=== PATIENT | male | born 1945 | race Caucasian/White ===

== ENCOUNTER 2017-04-07 14:42 | Observation (INO) | payer OTHER, BC ==
[2017-04-07] MEDS ORDERED: ASPIRIN 81 MG CHEWABLE TABLETS PO ONE (14:53)
--- NOTE | 2017-04-07 15:02 | PDOC ---
History of Present Illness - General History Source: Patient Exam Limitations: No Limitations - History of Present Illness Initial Comments: 04/07/17 17:16 The patient is a 72-year-old male with a significant past medical history of IDDM, a-fib, HTN, CBD malignancy (s/p pancreatectomy, splenectomy, cholecystectomy 3 weeks ago), who presents to the emergency department with chest pain since 1:30 pm today. He states the chest pain felt like a blowtorch on the chest, 10/10 in severity, and lasted approximately 10 minutes. Upon interview he states the pain has dissipated and he now feels tired. He also reports he is concerned that his sugar levels have not been decreasing as usual despite typical usage and compliance with his insulin medication. The patient denies shortness of breath, headache and dizziness. The patient denies fever, chills, nausea, vomit, diarrhea and constipation. The patient denies dysuria, frequency, urgency and hematuria. Allergies: NKDA Past Surgical History: s/p pancreatectomy, splenectomy, cholecystectomy (3 weeks ago) Social History: No toxic habits reported PCP: Dr. Edis Becerra Blueprint Duplicator: Dr. Schwartz Cabin Supervisor: Dr. Ritchie Rosado ([place]) <Felecia Willams - Last Filed: 04/07/17 17:16> <Becky Robison - Last Filed: 04/08/17 17:03> - General Stated Complaint: CHEST PAIN Time Seen by Provider: 04/07/17 15:02 Past History <Felecia Willams - Last Filed: 04/07/17 17:16> - Past Medical History Cardiac Disorders: Yes (A.F) Diabetes: Yes Disorders: Yes (H/O KIDNEY STONE) - Surgical History Appendectomy: Yes Orthopedic Surgery: No (LEFT KNEE SX & TENDON SX) - Suicide/Smoking/Psychosocial Hx Smoking History: Never smoked Have you smoked in the past 12 months: No Hx Alcohol Use: Yes (RARE) Drug/Substance Use Hx: No Substance Use Type: Alcohol <Becky Robison - Last Filed: 04/08/17 17:03> - Past Medical History Allergies/Adverse Reactions: Allergies Allergy/AdvReac Type Severity Reaction Status Date / Time No Known Drug Allergies Allergy Verified 12/29/13 12:27 Home Medications: Ambulatory Orders Alum-Mag Hydroxide-Simeth Liq 200 mg PO Q4HWA PRN 04/07/17 Apixaban [Eliquis] 04/07/17 Ascorbic Acid [Vitamin C -] 250 mg PO DAILY 04/07/17 Cholecalciferol (Vitamin D3) 1,000 units PO 04/07/17 Docusate Sodium 100 mg PO 04/07/17 Famotidine 20 mg PO 04/07/17 Insulin Detemir [Levemir Flextouch] 100 unit SQ 04/07/17 Insulin Lispro [Humalog Kwikpen U-100] 100 unit SQ 04/07/17 Lipase/Protease/Amylase [Zenpep Dr 40,000 Units Capsule] 1 each PO TID 04/07/17 Lisinopril [Zestril] 30 mg PO 04/07/17 Metoprolol Tartrate 50 mg PO 04/07/17 [place]-3 Fatty Acids/Fish Oil [Fish Oil 1,000 mg Capsule] 04/07/17 Oxycodone HCl/Acetaminophen [Oxycodone-Acetaminophen 5-325] 1 each PO 04/07/17 Paroxetine HCl [Paxil Cr] 25 mg PO 04/07/17 Review of Systems - Review of Systems Able to Perform ROS?: Yes Comments:: 04/07/17 17:17 GENERAL/CONSTITUTIONAL: No: fever, chills, weakness, loss of appetite. HEAD, EYES, EARS, NOSE AND THROAT: No: change in vision, ear pain, discharge, sore throat, throat swelling. CARDIOVASCULAR: (+) Chest pain. No: lightheadedness, palpitations, syncope RESPIRATORY: No: cough, shortness of breath, wheezing, hemoptysis, stridor. GASTROINTESTINAL: No: nausea, vomiting, abdominal cramping, diarrhea, rectal bleeding, constipation. GENITOURINARY: No: dysuria, hematuria, frequency, urgency, flank pain. MUSCULOSKELETAL: No: back pain, neck pain, joint pain, muscle swelling or pain SKIN: No: lesions, pallor, rash or easy bruising. NEUROLOGIC: No: headache, vertigo, paresthesias, weakness ENDOCRINE: No: unexplained weight gain or loss HEMATOLOGIC/LYMPHATIC: No: anemia, easy bleeding, swelling nodes <Willams,Felecia - Last Filed: 04/07/17 17:16> *Physical Exam - Vital Signs Last Vital Signs Temp Pulse Resp BP Pulse Ox 98.1 F 81 14 112/73 98 04/07/17 15:34 04/07/17 15:34 04/07/17 15:34 04/07/17 15:34 04/07/17 15:34 - Physical Exam Comments: 04/07/17 17:17 GENERAL: The patient is in no acute distress. HEAD: Normal with no signs of trauma. EYES: PERRLA, EOMI, sclera anicteric, conjunctiva clear. ENT: Ears normal, nares patent, oropharynx clear without exudates. Moist mucous membranes. NECK: Normal range of motion, supple without lymphadenopathy, JVD, or masses. LUNGS: Breath sounds equal, clear to auscultation bilaterally. No wheezes, and no crackles. HEART:Regular rate and rhythm, normal S1 and S2 without murmur, rub or gallop. ABDOMEN: (+) Healing abdominal scar. Soft, nontender, normoactive bowel sounds. No guarding, no rebound. EXTREMITIES: Normal range of motion, no edema. No clubbing or cyanosis. No erythema, or tenderness. NEUROLOGICAL: Cranial nerves II through XII grossly intact. Normal speech. No focal neurological deficits. MUSCULOSKELETAL: Back nontender to palpation, no CVA tenderness SKIN: Warm, Dry, normal turgor, no rashes or lesions noted. <Felecia Willams - Last Filed: 04/07/17 17:16> ED Treatment Course - LABORATORY CBC & Chemistry Diagram: 04/07/17 15:44 04/07/17 15:44 - ADDITIONAL ORDERS Additional order review: Laboratory Results 04/07/17 15:44 Sodium Cancelled Potassium Cancelled Chloride Cancelled Carbon Dioxide Cancelled Anion Gap Cancelled BUN Cancelled Creatinine Cancelled Creat Clearance w eGFR Cancelled Random Glucose Cancelled Calcium Cancelled Magnesium Cancelled Total Bilirubin Cancelled AST Cancelled ALT Cancelled Alkaline Phosphatase Cancelled Creatine Kinase Cancelled Troponin I Cancelled B-Natriuretic Peptide Cancelled Total Protein Cancelled Albumin Cancelled 04/07/17 15:44 RBC 4.38 MCV 98.1 H MCHC 32.7 RDW 14.0 MPV 9.2 Neutrophils % 69.6 Lymphocytes % 17.4 Monocytes % 10.1 Eosinophils % 1.9 Basophils % 1.0 - Medications Given in the ED: ED Medications Discontinued Medications Generic Name Dose Route Start Last Admin Trade Name Freq PRN Reason Stop Dose Admin Aspirin 162 mg 04/07/17 14:53 04/07/17 15:48 Asa - PO 04/07/17 14:54 162 mg ONCE ONE Administration <Felecia Willams - Last Filed: 04/07/17 17:16> - LABORATORY CBC & Chemistry Diagram: 04/08/17 05:50 04/08/17 05:50 - RADIOLOGY Radiology Studies Ordered: Category Date Time Status CHEST X-RAY PORTABLE* [RAD] Stat Radiology 04/07/17 14:53 Ordered <Becky Robison - Last Filed: 04/08/17 17:03> Medical Decision Making - Medical Decision Making 04/08/17 16:55 72 yo M presenting to the ER due to chest pain He is s/p pancreatic duct carcinoma 3 weeks s/p Pancreatic, gallbladder resection Pt has a history of DM but notices that in the past few days his blood glucose has been very elevated He was seen by his ichthyology teacher who referred him to the ER The patient states that he has had chest pain He describes it as a blow torch across the chest No radiation to the back Pt has some pain in the arm When his pain happened, it knocked the air out of him No lower extremity edema On examination: RRR CTA Healing midline surgical scar No abd tenderness to palpation 04/08/17 17:02 Laboratory Tests 04/07/17 15:44 WBC 12.7 H Hgb 14.1 Hct 42.9 Plt Count 311 CMP hemolyzed Re sent Will do CTA to eval for PE given recent surgery Pt signed out to Dr James Pending CMP, CTA, Admission Clinical Impression: chest pain, initial presentation <Becky Robison - Last Filed: 04/08/17 17:03> *DC/Admit/Observation/Transfer - Attestations Scribe Attestion: 04/07/17 17:18 Documentation prepared by Felecia Willams, acting as medical records manager for Becky Robison MD/. <Felecia Willams - Last Filed: 04/07/17 17:16> <Becky Robison - Last Filed: 04/08/17 17:03> Diagnosis at time of Disposition: Chest pain - Discharge Dispostion Condition at time of disposition: Good
[2017-04-07] MEDS ORDERED: ASPIRIN 81 MG CHEWABLE TABLETS ONE (15:16)
[2017-04-07 15:44] VITALS: BMI 20.2
--- NOTE | 2017-04-07 16:32 | EKG ---
Test Reason : Blood Pressure : / mmHG Vent. Rate : 087 BPM Atrial Rate : 150 BPM P-R Int : 000 ms QRS Dur : 078 ms QT Int : 372 ms P-R-T Axes : 000 023 218 degrees QTc Int : 447 ms ATRIAL FIBRILLATION T wave abnormalities in inferior and anterolateral leads ABNORMAL ECG T WAVE INVERSION NOW EVIDENT IN ANTEROLATERAL LEADS Confirmed by MD Del Toro Edward ([id number]) on 04/07/2017 4:31:57 PM Referred By: Confirmed By:Omar Del Toro MD
[2017-04-07 16:45] LABS: EOS % 1.9 % (0-4.5); HEMATOCRIT 42.9 % (35.4-49); HEMOGLOBIN 14.1 GM/dL (11.7-16.9); LYMPH % 17.4 % (8-40); MCH 32.1 pg (25.7-33.7); MCHC 32.7 g/dl (32.0-35.9); MEAN CELL VOLUME 98.1 fl (80-96); MEAN PLT VOLUME 9.2 fl (7.5-11.1); MONO % 10.1 % (3.8-10.2); NEUT % 69.6 % (42.8-82.8); PLATELET COUNT 311 K/MM3 (134-434); RBC 4.38 M/mm3 (4.00-5.60); WHITE BLOOD COUNT 12.7 K/mm3 (4.0-10.0)
[2017-04-07 17:01] LABS: INR 1.23 (0.82-1.09); PROTHROMBIN TIME (PATIENT) 13.9 SEC (9.98-11.88)
[2017-04-07] MEDS ORDERED: INSULIN DETEMIR 100 UNITS/ML MDV SQ ONE ×2 (18:10→18:23)
[2017-04-07] MEDS ORDERED: SODIUM CHLORIDE 1,000 ML IV STA (18:10)
[2017-04-07 18:36] LABS: ALBUMIN 2.7 g/dl (3.4-5.0); ANION GAP 11 (8-16); BLOOD UREA NITROGEN 18 mg/dL (7-18); CALCIUM 7.7 mg/dL (8.5-10.1); CHLORIDE 94 mmol/L (98-107); CO2 26 mmol/L (21-32); POTASSIUM 4.4 mmol/L (3.5-5.1); SGOT/AST 22 U/L (15-37); SGPT/ALT 27 U/L (12-78); SODIUM 131 mmol/L (136-145)
[2017-04-07 18:39] LABS: ALK PHOS 110 U/L (45-117); BILIRUBIN,TOTAL 1.5 mg/dL (0.2-1.0); TOT PROT 5.5 g/dl (6.4-8.2)
[2017-04-07 18:40] LABS: GLUCOSE,RANDOM 384 mg/dL (74-106)
[2017-04-07] MEDS ORDERED: dilTIAZem HCL 50 MG/10 ML - 10 ML VIAL IVPUSH ONE (18:52)
[2017-04-07] MEDS ORDERED: dilTIAZem HCL 50 MG/10 ML - 10 ML VIAL ONE (19:13)
[2017-04-07] MEDS ORDERED: morphine CARPU-JECT 2 MG/1 ML DISP.SYRIN IVPUSH ONE (21:30)
[2017-04-07] MEDS ORDERED: ONDANSETRON 4 MG/2 ML VIAL IVPUSH STA (21:30)
--- NOTE | 2017-04-07 21:38 | PDOC ---
*Physical Exam - Vital Signs Last Vital Signs Temp Pulse Resp BP Pulse Ox 98.1 F 81 14 112/73 98 04/07/17 15:34 04/07/17 15:34 04/07/17 15:34 04/07/17 15:34 04/07/17 15:34 ED Treatment Course - LABORATORY CBC & Chemistry Diagram: 04/07/17 15:44 04/07/17 17:42 - ADDITIONAL ORDERS Additional order review: Laboratory Results 04/07/17 04/07/17 04/07/17 17:42 17:42 15:44 PT with INR INR Sodium 131 L Cancelled Potassium 4.4 Cancelled Chloride 94 L Cancelled Carbon Dioxide 26 Cancelled Anion Gap 11 Cancelled BUN 18 Cancelled Creatinine 1.0 Cancelled Creat Clearance w eGFR > 60 Cancelled Random Glucose 384 H* Cancelled Calcium 7.7 L Cancelled Magnesium Cancelled Total Bilirubin 1.5 H Cancelled AST 22 Cancelled ALT 27 Cancelled Alkaline Phosphatase 110 Cancelled Creatine Kinase 37 L Cancelled Troponin I 0.05 Cancelled B-Natriuretic Peptide 7986.22 H Cancelled Total Protein 5.5 L Cancelled Albumin 2.7 L Cancelled 04/07/17 15:44 PT with INR 13.90 H INR 1.23 H Sodium Potassium Chloride Carbon Dioxide Anion Gap BUN Creatinine Creat Clearance w eGFR Random Glucose Calcium Magnesium Total Bilirubin AST ALT Alkaline Phosphatase Creatine Kinase Troponin I B-Natriuretic Peptide Total Protein Albumin 04/07/17 15:44 RBC 4.38 MCV 98.1 H MCHC 32.7 RDW 14.0 MPV 9.2 Neutrophils % 69.6 Lymphocytes % 17.4 Monocytes % 10.1 Eosinophils % 1.9 Basophils % 1.0 - Medications Given in the ED: ED Medications Discontinued Medications Generic Name Dose Route Start Last Admin Trade Name Freq PRN Reason Stop Dose Admin Aspirin 162 mg 04/07/17 14:53 04/07/17 15:48 Asa - PO 04/07/17 14:54 162 mg ONCE ONE Administration Diltiazem HCl 10 mg 04/07/17 18:52 04/07/17 19:20 Cardizem Injection - IVPUSH 04/07/17 18:53 10 mg ONCE ONE Administration Insulin Detemir 10 units 04/07/17 18:10 04/07/17 18:49 Levemir Vial SQ 04/07/17 18:11 10 units ONCE ONE Administration *DC/Admit/Observation/Transfer Diagnosis at time of Disposition: Chest pain - Discharge Dispostion Condition at time of disposition: Stable Admit: Yes - Referrals Referrals: Shaan Becerra MD [Primary Care Provider] - - Patient Instructions - Post Discharge Activity
[2017-04-07] MEDS ORDERED: MORPHINE SULFATE 10 MG/1 ML *VIAL ONE (23:04)
[2017-04-07] MEDS ORDERED: ONDANSETRON 4 MG/2 ML VIAL ONE (23:05)
[2017-04-08] MEDS ORDERED: METOPROLOL TARTRATE 50 MG TABLET (FP) PO ONE (00:32)
--- NOTE | 2017-04-08 00:33 | HP ---
CHIEF COMPLAINT: abdominal pain PCP: Hernan HISTORY OF PRESENT ILLNESS: This is a 72 year old male with a significant past medical history of IDDM, afib , HTN, CBD malignancy s/p pancreatectomy, splenectomy, cholecystectomy 3 weeks ago at [facility]. He presented with an episode of pain going across upper abdomen in a horizontal pattern earlier today around 130pm that lasted 10 minutes. the pt describes the pain as being like someone just held his abdomen to a blowtorch. He had another brief episode in the ED that was much milder. No chest or abdominal pain for several hours now. He denies nausea, vomiting, diarrhea, SOB, palpitations. ER course was notable for: (1) troponin neg x 1 (2) WBC 12.7 (3) Recent Travel: pt denies PAST MEDICAL HISTORY: DM, Afib, HTN, CBD malignancy s/p pancreatectomy, splectomy, cholecystectomy 3 weeks ago, kidney stone PAST SURGICAL HISTORY: pancreatectomy, splectomy, cholecystectomy 3 weeks ago L knee tendon repair and fracture achilles tendon repair appendectomy Social History: Smoking: pt denies Alcohol: pt denies Drugs: pt denies Family History: mother age 93 dementia father decased age 75, throat CA, used chewing tobacco and smoked cigars 1 sister s/p BrCA 3 children with no medical problems Allergies No Known Drug Allergies Allergy (Verified 12/29/13 12:27) HOME MEDICATIONS: 3 Medication Instructions Recorded Alum-Mag Hydroxide-Simeth Liq 200 mg PO Q4HWA PRN 04/07/17 Apixaban [Eliquis] 04/07/17 Ascorbic Acid [Vitamin C -] 250 mg PO DAILY 04/07/17 Cholecalciferol (Vitamin D3) 1,000 units PO 04/07/17 Docusate Sodium 100 mg PO 04/07/17 Famotidine 20 mg PO 04/07/17 Insulin Detemir [Levemir Flextouch] 100 unit SQ 04/07/17 Insulin Lispro [Humalog Kwikpen 100 unit SQ 04/07/17 U-100] Lipase/Protease/Amylase [Zenpep Dr 1 each PO TID 04/07/17 40,000 Units Capsule] Lisinopril [Zestril] 30 mg PO 04/07/17 Metoprolol Tartrate 50 mg PO 04/07/17 [place]-3 Fatty Acids/Fish Oil [Fish 04/07/17 Oil 1,000 mg Capsule] Oxycodone HCl/Acetaminophen 1 each PO 04/07/17 [Oxycodone-Acetaminophen 5-325] Paroxetine HCl [Paxil Cr] 25 mg PO 04/07/17 REVIEW OF SYSTEMS CONSTITUTIONAL: Absent: fever, chills, diaphoresis, generalized weakness, malaise, loss of appetite, weight change HEENT: Absent: rhinorrhea, nasal congestion, throat pain, throat swelling, difficulty swallowing, mouth swelling, ear pain, eye pain, visual changes CARDIOVASCULAR: Absent: chest pain, syncope, palpitations, irregular heart rate, lightheadedness , peripheral edema RESPIRATORY: Absent: cough, shortness of breath, dyspnea with exertion, orthopnea, wheezing, stridor, hemoptysis GASTROINTESTINAL: present: abdominal pain Absent: abdominal distension, nausea, vomiting, diarrhea, constipation, melena, hematochezia GENITOURINARY: Absent: dysuria, frequency, urgency, hesitancy, hematuria, flank pain, genital pain MUSCULOSKELETAL: Absent: myalgia, arthralgia, joint swelling, back pain, neck pain SKIN: Absent: rash, itching, pallor HEMATOLOGIC/IMMUNOLOGIC: Absent: easy bleeding, easy bruising, lymphadenopathy, frequent infections ENDOCRINE: Absent: unexplained weight gain, unexplained weight loss, heat intolerance, cold intolerance NEUROLOGIC: Absent: headache, focal weakness or paresthesias, dizziness, unsteady gait, seizure, mental status changes, bladder or bowel incontinence PSYCHIATRIC: Absent: anxiety, depression, suicidal or homicidal ideation, hallucinations. PHYSICAL EXAMINATION Vital Signs - 24 hr 3 04/07/17 04/07/17 15:34 23:14 Temperature 98.1 F 98.7 F Pulse Rate 81 Pulse Rate [ 94 H Apical] Respiratory 14 12 Rate Blood Pressure 112/73 Blood Pressure 132/90 [Right Arm] O2 Sat by Pulse 98 94 L Oximetry (%) GENERAL: Awake, alert, and fully oriented, in no acute distress. HEAD: Normal with no signs of trauma. EYES: Pupils equal, round and reactive to light, extraocular movements intact, sclera anicteric, conjunctiva clear. No lid lag. EARS, NOSE, THROAT: Ears normal, nares patent, oropharynx clear without exudates. Moist mucous membranes. NECK: Normal range of motion, supple without lymphadenopathy, JVD, or masses. LUNGS: Breath sounds equal, clear to auscultation bilaterally. No wheezes, and no crackles. No accessory muscle use. HEART: Regular rate and rhythm, normal S1 and S2 without murmur, rub or gallop. ABDOMEN: Soft, nontender, not distended, normoactive bowel sounds, no guarding, no rebound, no masses. No hepatomegaly or splenomegaly. midline surgical scar healing well, some scabbing still present near umbilicus MUSCULOSKELETAL: Normal range of motion at all joints. No bony deformities or tenderness. No CVA tenderness. UPPER EXTREMITIES: 2+ pulses, warm, well-perfused. No cyanosis. No clubbing. No peripheral edema. LOWER EXTREMITIES: 2+ pulses, warm, well-perfused. No calf tenderness. No peripheral edema. NEUROLOGICAL: Cranial nerves II-XII intact. Normal speech. Normal gait. PSYCHIATRIC: Cooperative. Good eye contact. Appropriate mood and affect. SKIN: Warm, dry, normal turgor, no rashes or lesions noted, normal capillary refill. Laboratory Results - last 24 hr 3 04/07/17 04/07/17 04/07/17 15:44 15:44 15:44 WBC 12.7 H RBC 4.38 Hgb 14.1 Hct 42.9 MCV 98.1 H MCH 32.1 MCHC 32.7 RDW 14.0 Plt Count 311 MPV 9.2 Neutrophils % 69.6 Lymphocytes % 17.4 Monocytes % 10.1 Eosinophils % 1.9 Basophils % 1.0 PT with INR 13.90 H INR 1.23 H Sodium Cancelled Potassium Cancelled Chloride Cancelled Carbon Dioxide Cancelled Anion Gap Cancelled BUN Cancelled Creatinine Cancelled Creat Clearance w eGFR Cancelled POC Glucometer Random Glucose Cancelled Calcium Cancelled Magnesium Cancelled Total Bilirubin Cancelled AST Cancelled ALT Cancelled Alkaline Phosphatase Cancelled Creatine Kinase Cancelled Troponin I Cancelled B-Natriuretic Peptide Cancelled Total Protein Cancelled Albumin Cancelled 3 04/07/17 04/07/17 04/07/17 17:42 17:42 23:18 WBC RBC Hgb Hct MCV MCH MCHC RDW Plt Count MPV Neutrophils % Lymphocytes % Monocytes % Eosinophils % Basophils % PT with INR INR Sodium 131 L Potassium 4.4 Chloride 94 L Carbon Dioxide 26 Anion Gap 11 BUN 18 Creatinine 1.0 Creat Clearance w eGFR > 60 POC Glucometer [phone] Random Glucose 384 H* Calcium 7.7 L Magnesium Total Bilirubin 1.5 H AST 22 ALT 27 Alkaline Phosphatase 110 Creatine Kinase 37 L Troponin I 0.05 B-Natriuretic Peptide 7986.22 H Total Protein 5.5 L Albumin 2.7 L ECG Atrial fibrillation Vent rate 87, QTC 447 Inverted T waves Lead 1, 2, aVL, aVF, V2-V6; flattened lead 3 Radiology Reports Chest CTA Impression: No CT evidence of pulmonary embolism. There is no evidence of infiltrate or pleural effusion. Mild cardiomegaly. 3 x 2 mm perifissural nodule along the horizontal fissure. Reported By: Scott Lombardi MD 04/07/172054 Chest Xray IMPRESSION: No acute disease. Reported By: Demetrius Leslie MD 04/07/17 1533 ASSESSMENT/PLAN: 72yM with PMH DM, Afib, HTN, CBD malignancy s/p pancreatectomy, splectomy, cholecystectomy 3 weeks ago, kidney stone presented with upper abdominal pain. Upper abdominal pain - given pt is DM, will r/o ACS - troponin neg x 1, trend x 2 more - tele montoring - consider cardiology consult - consider us abdomen if pain recurs leukocytosis - obtain u/a - repeat in am DM - home lantus changed to formulary levemir - novolog SS AC/HS - if BGMs remain uncontrolled would obtain endo consult: pt sees Dr. Schwartz Afib/HTN - HR bumping up into 100s, pt did not take evening metoprolol dose. Will give now. - cont home eliquis, zestril and metoprolol DVT PPX - chemoprophylaxis deferred as pt expected LOS <48h FEN - Tolerating po - BMP in am - diabetic/low sodium diet Dispo: pt currently requires further observation/monitoring for management of his emergent condition.
[2017-04-08 00:34] LABS: URINE APPEARANCE CLEAR; URINE BILIRUBIN NEGATIVE (NEGATIVE); URINE BLOOD NEGATIVE (NEGATIVE); URINE COLOR LTYELLOW; URINE GLUCOSE (UA) 3+ (NEGATIVE); URINE KETONE 1+ (NEGATIVE); URINE LEUK ESTERASE NEGATIVE (NEGATIVE); URINE NITRITE NEGATIVE (NEGATIVE); URINE PROTEIN NEGATIVE (NEGATIVE)
[2017-04-08] MEDS ORDERED: INSULIN (NOVOLOG) ASPART 100 UNITS/ML 10ML VIAL SQ ONE (00:37)
[2017-04-08] MEDS ORDERED: MAG HYDROX/AL HYDROX/SIMETH 30 ML UNIT-DOSE CUP PO PRN (00:41)
[2017-04-08] MEDS ORDERED: METOPROLOL TARTRATE 50 MG TABLET (FP) ONE (00:54)
[2017-04-08] MEDS ORDERED: INSULIN SLIDING SCALE (NOVOLOG) 1 VIAL SQ SCH ×2 (07:00→22:00)
[2017-04-08] MEDS ORDERED: INSULIN DETEMIR 100 UNITS/ML MDV SQ SCH (07:00)
[2017-04-08 07:42] LABS: BASO % 0.7 % (0-2.0); EOS % 14.3 % (0-4.5); HEMATOCRIT 42.3 % (35.4-49); HEMOGLOBIN 13.7 GM/dL (11.7-16.9); LYMPH % 18.7 % (8-40); MCH 31.6 pg (25.7-33.7); MCHC 32.5 g/dl (32.0-35.9); MEAN CELL VOLUME 97.4 fl (80-96); MEAN PLT VOLUME 8.3 fl (7.5-11.1); MONO % 10.7 % (3.8-10.2); NEUT % 55.6 % (42.8-82.8); PLATELET COUNT 298 K/MM3 (134-434); RBC 4.34 M/mm3 (4.00-5.60); RDW 13.6 % (11.9-15.9); WHITE BLOOD COUNT 11.1 K/mm3 (4.0-10.0)
[2017-04-08 08:07] LABS: CHLORIDE 98 mmol/L (98-107); POTASSIUM 4.4 mmol/L (3.5-5.1); SODIUM 137 mmol/L (136-145)
[2017-04-08] MEDS: INSULIN SLIDING SCALE (NOVOLOG) 1 VIAL SQ SCH ×2 (08:09→12:43)
[2017-04-08] MEDS: LIPASE/PROTEASE/AMYLASE 36,000 UNIT CAPSULE PO SCH ×2 (08:10→12:44)
[2017-04-08] MEDS ORDERED: INSULIN DETEMIR 100 UNITS/ML MDV SQ ONE (08:14)
[2017-04-08 08:18] LABS: ANION GAP 6 (8-16); BLOOD UREA NITROGEN 13 mg/dL (7-18); CALCIUM 7.4 mg/dL (8.5-10.1); CO2 33 mmol/L (21-32); CREATININE 0.6 mg/dL (0.7-1.3); GLUCOSE,RANDOM 101 mg/dL (74-106); MAGNESIUM 2.2 mg/dL (1.8-2.4); PHOSPHOROUS 2.4 mg/dL (2.5-4.9)
[2017-04-08] MEDS ORDERED: predniSONE 10 MG TABLET (UD) ONE (09:06)
[2017-04-08] MEDS ORDERED: predniSONE 20 MG TABLET (UD) ONE (09:06)
[2017-04-08 09:26] VITALS: BP 110/65; PULSE 87; TEMP 98.4
[2017-04-08] MEDS ORDERED: APIXABAN 5 MG TABLET PO SCH (10:00)
[2017-04-08] MEDS ORDERED: LISINOPRIL 10 MG TABLET (FP) PO SCH (10:00)
[2017-04-08] MEDS ORDERED: ASCORBIC ACID 250 MG TABLET (FP) PO SCH (10:00)
[2017-04-08] MEDS ORDERED: OMEGA-3 ACID ETHYL ESTERS (FATTY-ACIDS) 1 GM CAPSULE (FP) PO SCH (10:00)
[2017-04-08] MEDS ORDERED: CHOLECALCIFEROL (VITAMIN D3) 1,000 UNIT TABLET (FP) PO SCH (10:00)
[2017-04-08] MEDS ORDERED: PARoxetine HCL 20 MG TABLET (FP) PO SCH (10:00)
[2017-04-08] MEDS ORDERED: METOPROLOL TARTRATE 50 MG TABLET (FP) PO SCH (10:00)
[2017-04-08] MEDS ORDERED: RANITIDINE HCL 150 MG TABLET (FP) PO SCH (10:00)
[2017-04-08] MEDS ORDERED: HEMOQUE TEST 1 EACH EACH ONE (11:05)
[2017-04-08 11:24] LABS: AMYLASE 5 U/L (25-115); LIPASE 19 U/L (73-393)
--- NOTE | 2017-04-08 11:29 | PN ---
Progress Note, Physician Chief Complaint: Pt in no acute distress. Pt reports the upper abd pain/burning he had resolved at the moment. Denies any chest pain, sob, n/v/d, fever/chills or weakness. - Current Medication List Current Medications: Active Medications Al Hydroxide/Mg Hydroxide (Mylanta Oral Suspension -) 30 ml PO Q6H PRN PRN Reason: GAS Apixaban (Eliquis -) 5 mg PO BID [facility] Last Admin: 04/08/17 09:14 Dose: 5 mg Ascorbic Acid (Vitamin C -) 250 mg PO DAILY [facility] Last Admin: 04/08/17 09:14 Dose: 250 mg Cholecalciferol (Vitamin D3 -) 1,000 unit PO DAILY [facility] Last Admin: 04/08/17 09:14 Dose: 1,000 unit Insulin Aspart (Novolog Vial Sliding Scale -) 1 vial SQ HS [facility] PRN Reason: Protocol Insulin Aspart (Novolog Vial Sliding Scale -) 1 vial SQ TIDAC [facility] PRN Reason: Protocol Last Admin: 04/08/17 08:09 Dose: Not Given Insulin Detemir (Levemir Vial) 16 units SQ BID@0700,2200 [facility] Last Admin: 04/08/17 08:09 Dose: 16 units Lisinopril (Prinivil) 30 mg PO DAILY [facility] Last Admin: 04/08/17 09:14 Dose: 30 mg Metoprolol Tartrate (Lopressor -) 50 mg PO BID [facility] Last Admin: 04/08/17 09:14 Dose: 50 mg [id number] Ethyl Esters (Lovaza -) 1 gm PO DAILY [facility] Last Admin: 04/08/17 09:14 Dose: 1 gm Pancrelipase (Creon Dr 36,000 Units Capsule) 1 cap PO TIDCM [facility] Last Admin: 04/08/17 08:10 Dose: 1 cap Paroxetine HCl (Paxil -) 20 mg PO DAILY [facility] Last Admin: 04/08/17 09:14 Dose: 20 mg Ranitidine HCl (Zantac -) 150 mg PO BID [facility] Last Admin: 04/08/17 09:15 Dose: 150 mg - Objective Vital Signs: Vital Signs Temperature 98.4 F 04/08/17 09:25 Pulse Rate 87 04/08/17 09:25 Respiratory Rate 18 04/08/17 09:25 Blood Pressure 110/65 04/08/17 09:25 O2 Sat by Pulse Oximetry (%) 95 04/08/17 07:55 Constitutional: Yes: Well Nourished, No Distress Cardiovascular: Yes: Pulse Irregular. No: Bruit, Gallop, Murmur Respiratory: Yes: WNL, Regular, CTA Bilaterally Gastrointestinal: Yes: Normal Bowel Sounds, Soft. No: Distention, Tenderness Genitourinary: Yes: WNL Musculoskeletal: Yes: WNL Extremities: Yes: WNL Edema: No Integumentary: Yes: Incision (cdi, appropriately healing) Wound/Incision: Yes: Clean/Dry, Well Approximated, Open to air. No: Draining, Reddened Neurological: Yes: WNL, Alert, Oriented Psychiatric: Yes: WNL, Alert, Oriented Labs: CBC, BMP 04/08/17 05:50 04/08/17 05:50 INR, PTT INR 1.23 (0.82-1.09) H 04/07/17 15:44 - ....Imaging Chest X-ray: Report Reviewed Ultrasound: Pending EKG: Report Reviewed Problem List - Problems (1) Abdominal pain of unknown cause Assessment/Plan: s/p pancreatectomy, splectomy, cholecystectomy 3 weeks ago at [facility] pt reports upper abdominal burning without any other symptoms, similar to the discomfort he had post-op denies any current abd pain/discomfort chest xray/ct without acute findings cardiac etiology ruled out case discussed with cardiologyorlin for d/c from cardiac standpoint. trops wnl ekg t wave inversions lipase/amylase/lipid panel ordered Abd US ordered can resume diab/low na diet after US Code(s): R10.9 - UNSPECIFIED ABDOMINAL PAIN (2) Hx of abdominal surgery Assessment/Plan: as above Code(s): Z98.890 - OTHER SPECIFIED POSTPROCEDURAL STATES (3) Diabetes Assessment/Plan: controlled continue insulin management diab/low na diet bgm Code(s): E11.9 - TYPE 2 DIABETES MELLITUS WITHOUT COMPLICATIONS Qualifiers: Diabetes mellitus type: type 2 Diabetes mellitus complication status: without complication Diabetes mellitus nursing home insulin use: with intermediate teacher use Qualified Code(s): E11.9 - Type 2 diabetes mellitus without complications ; Z79.4 - manager terminal (current) use of insulin; Z79.4 - [facility] (current) use of insulin; Z79.4 - manager terminal (current) use of insulin; Z79.4 - manager terminal ( current) use of insulin (4) HTN (hypertension) Assessment/Plan: controlled continue metoprolol, lisinopril Code(s): I10 - ESSENTIAL (PRIMARY) HYPERTENSION Qualifiers: Hypertension type: essential hypertension Qualified Code(s): I10 - Essential (primary) hypertension (5) A-fib Assessment/Plan: chronic, rate controlled coagulated on eliquis Code(s): I48.91 - UNSPECIFIED ATRIAL FIBRILLATION Qualifiers: Atrial fibrillation type: chronic Qualified Code(s): I48.2 - Chronic atrial fibrillation (6) Depression Assessment/Plan: stable continue paxil Code(s): F32.9 - MAJOR DEPRESSIVE DISORDER, SINGLE EPISODE, UNSPECIFIED Qualifiers: Depression Type: other depression Qualified Code(s): F32.89 - Other specified depressive episodes (7) Hyperlipidemia Assessment/Plan: chronic continue fish oil lipid profile ordered Code(s): E78.5 - HYPERLIPIDEMIA, UNSPECIFIED Assessment/Plan dispo home today based on results abd us, labs
--- NOTE | 2017-04-08 12:35 | CON.CARD ---
Cardiology Consult (text) - Consultation Consultation Note: cc: abd pain hpi: 72 m hx dm, htn, afib, CBD cancer s/p recent abd surgery, here with epigastric burning. Pt was sitting yesterday and began to feel epigastric burning that lasted for 10 mins. No sob, cp, palps, dizzy, loc, pnd, orthopnea , le edema. Resolved on own. Had similar sx after his recent abd surgery. Today feels well, no abd pain. pmh: per hpi psh: per hpi social: no tob fam: no premature cad, scd ros: per hpi; no nvd, cough, berkowitz, vision changes, gib, hematuria, muscle pains meds: Home Medications Medication Instructions Recorded Alum-Mag Hydroxide-Simeth Liq 200 mg PO Q4HWA PRN 04/07/17 Apixaban [Eliquis] 04/07/17 Ascorbic Acid [Vitamin C -] 250 mg PO DAILY 04/07/17 Cholecalciferol (Vitamin D3) 1,000 units PO 04/07/17 Docusate Sodium 100 mg PO 04/07/17 Famotidine 20 mg PO 04/07/17 Insulin Detemir [Levemir Flextouch] 100 unit SQ 04/07/17 Insulin Lispro [Humalog Kwikpen 100 unit SQ 04/07/17 U-100] Lipase/Protease/Amylase [Zenpep Dr 1 each PO TID 04/07/17 40,000 Units Capsule] Lisinopril [Zestril] 30 mg PO 04/07/17 Metoprolol Tartrate 50 mg PO 04/07/17 [place]-3 Fatty Acids/Fish Oil [Fish 04/07/17 Oil 1,000 mg Capsule] Oxycodone HCl/Acetaminophen 1 each PO 04/07/17 [Oxycodone-Acetaminophen 5-325] Paroxetine HCl [Paxil Cr] 25 mg PO 04/07/17 pe: Vital Signs Period Temp Pulse Resp BP Sys/[place] Pulse Ox Last 24 Hr 98.1 F-98.7 F 81-94 12-18 110-138/65-90 94-98 nad no jvd irreg s1s2 no mrg cta bl nl eff aaox3 abd with mild epigastric tenderness, pos bs, nd no le e/c/c no jaundice diaphoresis pos dp pt Laboratory Last Values WBC 11.1 K/mm3 (4.0-10.0) H 04/08/17 05:50 RBC 4.34 M/mm3 (4.00-5.60) 04/08/17 05:50 Hgb 13.7 GM/dL (11.7-16.9) 04/08/17 05:50 Hct 42.3 % (35.4-49) 04/08/17 05:50 MCV 97.4 fl (80-96) H 04/08/17 05:50 MCH 31.6 pg (25.7-33.7) 04/08/17 05:50 MCHC 32.5 g/dl (32.0-35.9) 04/08/17 05:50 RDW 13.6 % (11.9-15.9) 04/08/17 05:50 Plt Count 298 K/MM3 (134-434) 04/08/17 05:50 MPV 8.3 fl (7.5-11.1) 04/08/17 05:50 Neutrophils % 55.6 % (42.8-82.8) D 04/08/17 05:50 Lymphocytes % 18.7 % (8-40) 04/08/17 05:50 Monocytes % 10.7 % (3.8-10.2) H 04/08/17 05:50 Eosinophils % 14.3 % (0-4.5) H D 04/08/17 05:50 Basophils % 0.7 % (0-2.0) 04/08/17 05:50 PT with INR 13.90 SEC (9.98-11.88) H 04/07/17 15:44 INR 1.23 (0.82-1.09) H 04/07/17 15:44 Sodium 137 mmol/L (136-145) 04/08/17 05:50 Potassium 4.4 mmol/L (3.5-5.1) 04/08/17 05:50 Chloride 98 mmol/L (98-107) 04/08/17 05:50 Carbon Dioxide 33 mmol/L (21-32) H D 04/08/17 05:50 Anion Gap 6 (8-16) L 04/08/17 05:50 BUN 13 mg/dL (7-18) D 04/08/17 05:50 Creatinine 0.6 mg/dL (0.7-1.3) L D 04/08/17 05:50 Creat Clearance w eGFR > 60 (>60) 04/07/17 17:42 POC Glucometer 175.69504 UNITS (80-120) 04/08/17 11:10 Random Glucose 101 mg/dL (74-106) D 04/08/17 05:50 Calcium 7.4 mg/dL (8.5-10.1) L 04/08/17 05:50 Phosphorus 2.4 mg/dL (2.5-4.9) L 04/08/17 05:50 Magnesium 2.2 mg/dL (1.8-2.4) 04/08/17 05:50 Total Bilirubin 1.5 mg/dL (0.2-1.0) H 04/07/17 17:42 AST 22 U/L (15-37) 04/07/17 17:42 ALT 27 U/L (12-78) 04/07/17 17:42 Alkaline Phosphatase 110 U/L (45-117) 04/07/17 17:42 Creatine Kinase 36 IU/L (39-308) L 04/08/17 05:50 Troponin I 0.06 ng/ml (0.00-0.05) H 04/08/17 05:50 B-Natriuretic Peptide 7986.22 pg/ml (5-125) H 04/07/17 17:42 Total Protein 5.5 g/dl (6.4-8.2) L 04/07/17 17:42 Albumin 2.7 g/dl (3.4-5.0) L 04/07/17 17:42 Total Amylase 5 U/L (25-115) L 04/08/17 05:50 Lipase 19 U/L (73-393) L 04/08/17 05:50 Urine Color Ltyellow 04/08/17 00:10 Urine Appearance Clear 04/08/17 00:10 Urine pH 6.0 (5.0-8.0) 04/08/17 00:10 Ur Specific [place] 1.048 (1.001-1.035) H 04/08/17 00:10 Urine Protein Negative (NEGATIVE) 04/08/17 00:10 Urine Glucose (UA) 3+ (NEGATIVE) H 04/08/17 00:10 Urine Ketones 1+ (NEGATIVE) H 04/08/17 00:10 Urine Blood Negative (NEGATIVE) 04/08/17 00:10 Urine Nitrite Negative (NEGATIVE) 04/08/17 00:10 Urine Bilirubin Negative (NEGATIVE) 04/08/17 00:10 Urine Urobilinogen 2.0 mg/dL (0.2-1.0) 04/08/17 00:10 Ur Leukocyte Esterase Negative (NEGATIVE) 04/08/17 00:10 cta chest: no pe, no chf ecg: aifb, vr 87, nl qtc, no st changes, nonspec tw changes a/p: 72 m hx dm, htn, afib, CBD cancer s/p recent abd surgery, here with epigastric burning. epigastric burning: -no cp, no signs acs (ce's negx3), no signs chf. reproducible epigastric tenderness. -does not seem cardiac in etiology, seems more GI related htn: -cont home meds afib: -rate controlled -cont bbjennifer hld: -on [facility] cardiac robison stable for dc
[2017-04-08] MEDS ORDERED: INSULIN (NOVOLOG) ASPART 100 UNITS/ML 10ML VIAL ONE (12:38)
--- NOTE | 2017-04-08 14:00 | DS ---
Physical Examination Vital Signs: Vital Signs Temperature 98.4 F 04/08/17 09:25 Pulse Rate 87 04/08/17 09:25 Respiratory Rate 18 04/08/17 09:25 Blood Pressure 110/65 04/08/17 09:25 O2 Sat by Pulse Oximetry (%) 95 04/08/17 07:55 Constitutional: Yes: Well Nourished, No Distress Cardiovascular: Yes: Pulse Irregular, Gallop. No: Bruit, JVD, Murmur Respiratory: Yes: WNL, Regular, CTA Bilaterally. No: Rales, Rhonchi, Stridor, Tachypnea, Wheezes Gastrointestinal: Yes: WNL, Normal Bowel Sounds, Soft. No: Distention, Tenderness Musculoskeletal: Yes: WNL Extremities: Yes: WNL Edema: No Integumentary: Yes: Incision Wound/Incision: Yes: Clean/Dry, Open to air Neurological: Yes: Alert, Oriented Psychiatric: Yes: Alert, Oriented Labs: CBC, BMP 04/08/17 05:50 04/08/17 05:50 Discharge Summary Reason For Visit: CHEST PAIN Current Active Problems Diabetes (Chronic) HTN (hypertension) (Chronic) A-fib (Chronic) Depression (Chronic) Hyperlipidemia (Chronic) Hospital Course: is a pleasant 72 year old male with pmh of afib, htn, dm2, cbd ca s/p pancreatectomy, splenectomy, cholecystectomy 3 weeks ago. He presented to the ED with epigastric burning pain without other symptoms. Today, pt reports burning is resolved, pt able to tolerate diet. Cardiology was consulted and cardiac etiology ruled out. Abd US without acute findings. Lipase/amylase wnl. Pt advised to follow up with pcp and surgeon. Condition: Good - Instructions Diet, Activity, Other Instructions: resume prev diet. ambulate as tolerated f/u with pcp in 1 week f/u with surgeon as directed Seek medical care if worsening chest pain, persistent n/v/d, sob, unilateral weakness, fever/chills Referrals: Shaan Becerra MD [Primary Care Provider] - 1 Week Disposition: HOME - Home Medications Comprehensive Discharge Medication List: Ambulatory Orders Alum-Mag Hydroxide-Simeth Liq 200 mg PO Q4HWA PRN 04/07/17 Apixaban [Eliquis] 04/07/17 Ascorbic Acid [Vitamin C -] 250 mg PO DAILY 04/07/17 Cholecalciferol (Vitamin D3) 1,000 units PO 04/07/17 Docusate Sodium 100 mg PO 04/07/17 Famotidine 20 mg PO 04/07/17 Insulin Detemir [Levemir Flextouch] 100 unit SQ 04/07/17 Insulin Lispro [Humalog Kwikpen U-100] 100 unit SQ 04/07/17 Lipase/Protease/Amylase [Zenpep Dr 40,000 Units Capsule] 1 each PO TID 04/07/17 Lisinopril [Zestril] 30 mg PO 04/07/17 Metoprolol Tartrate 50 mg PO 04/07/17 [place]-3 Fatty Acids/Fish Oil [Fish Oil 1,000 mg Capsule] 04/07/17 Oxycodone HCl/Acetaminophen [Oxycodone-Acetaminophen 5-325] 1 each PO 04/07/17 Paroxetine HCl [Paxil Cr] 25 mg PO 04/07/17
[2017-04-08 15:51] LABS: CHOLESTEROL 128 mg/dL (50-200); HDL CHOLESTEROL 28 mg/dL (40-60); TRIGLYCERIDES 129 mg/dL (35-160)
[2017-04-09 01:09] LABS: LDL CHOLESTEROL (ONLY SJRH) 89 mg/dL (5-100)
== END 2017-04-08 14:35 | disposition home or self-care (01) ==
LOC: JER 14:42 → JERBED 21:38
PROVIDERS: ADMIT Internal Medicine; ATTEND Internal Medicine
PROC: 3E033NZ Introduction of Analgesics, Hypnotics, Sedatives into Peripheral Vein, Percutaneous Approach (ICD-10-PCS; principal; 2017-04-07)
PROC: 3E033GC Introduction of Other Therapeutic Substance into Peripheral Vein, Percutaneous Approach (ICD-10-PCS; 2017-04-07)
PROC: 3E0337Z Introduction of Electrolytic and Water Balance Substance into Peripheral Vein, Percutaneous Approach (ICD-10-PCS; 2017-04-07)
PROC: 3E013VG Introduction of Insulin into Subcutaneous Tissue, Percutaneous Approach (ICD-10-PCS; 2017-04-07)
DX: R07.9 Chest pain, unspecified (principal); R10.10 Upper abdominal pain, unspecified; D72.829 Elevated white blood cell count, unspecified; E11.9 Type 2 diabetes mellitus without complications; I10 Essential (primary) hypertension; I48.91 Unspecified atrial fibrillation; F32.9 Major depressive disorder, single episode, unspecified; E78.5 Hyperlipidemia, unspecified; C24.0 Malignant neoplasm of extrahepatic bile duct; Z79.4 Long term (current) use of insulin; Z87.442 Personal history of urinary calculi; Z98.890 Other specified postprocedural states; Z90.81 Acquired absence of spleen; Z90.49 Acquired absence of other specified parts of digestive tract; Z90.410 Acquired total absence of pancreas
CPT/HCPCS: 36415; 71045-TC-FY; 71275-TC; 76700-TC; 80048; 80053; 80061; 81003; 82150; 82550; 82962; 83690; 83721; 83735; 83880; 84100; 84484; 85025; 85610; 87086; 93005; 93010; 96361; 96372; 96374; 96375; 99285-25; G0378

== ENCOUNTER 2019-01-26 06:10 | Day surgery (SDC) | payer OTHER, BC ==
--- NOTE | 2019-01-19 09:34 | HP ---
DATE OF SURGERY 01/26/2019 DATE OF DICTATION: 11/16/2018 REASON FOR ADMISSION: Bilateral hernia. BRIEF HISTORY: This is a 73-year-old gentleman who is known to have bilateral inguinal hernias for many, many years. He was fine up until this summer when he was walking around in [place] and he developed discomfort in the left groin region from his left inguinal hernia. He now wished to have his hernia repaired. He has had no bouts of nausea or vomiting, no change in bowel habits. PAST MEDICAL HISTORY: Significant for atrial fibrillation, diabetes, pancreatic cancer, anxiety. PAST SURGICAL HISTORY: Patient has had a pancreatectomy done in 2018 followed by incisional hernia that was repaired in May of 2018. ALLERGIES: None. MEDICATION: Lipitor, diltiazem, Paxil, Eliquis, glyburide, various vitamins. SOCIAL HISTORY: Does not smoke or drink. No history of drug use. PHYSICAL EXAMINATION: Abdomen: Soft, nontender, nondistended. He was examined in the erect and supine position and placed through multiple Valsalva maneuvers. Patient has a midline scar from xiphoid just below the umbilicus. He has 2 large inguinal hernias, the left is slightly larger than that of the right. Both hernias, the smaller one is the size of my fist. Scrotum and testicles are within normal limits. The hernia on the left is mostly reducible except for a very small portion. IMPRESSION/PLAN: Incarcerated left inguinal hernia, large right inguinal hernia : This is a 73-year-old gentleman who has become symptomatic from both inguinal hernias. At this point I would recommend their repair. Given his previous surgeries, the risk of converting from the laparoscopic procedure to an open procedure is greater; however, he and I discussed this, and therefore we will plan for an attempt at a laparoscopic left inguinal hernia repair as well as a repair on the right. If the hernia cannot be done laparoscopically the right inguinal hernia will not be repaired, and the left will be repaired in the open fashion. The indications, alternatives, and complications of a laparoscopic inguinal hernia and an open hernia have been discussed, questions have been answered, will plan on obtaining written consent the day of surgery. Paul DALEY [id number] cc: Shaan Becerra M.D. [facility]
[2019-01-25 17:10] VITALS: BMI 23.7
[2019-01-26] MEDS ORDERED: ceFAZolin SODIUM 1 GM VIAL ONE ×2 (06:25→07:34)
[2019-01-26] MEDS ORDERED: TAMSULOSIN HCL 0.4 MG CAP ONE (06:25)
[2019-01-26] MEDS ORDERED: TAMSULOSIN HCL 0.4 MG CAP PO ONE (06:30)
[2019-01-26] MEDS ORDERED: PROPOFOL 20 ML ONE ×2 (07:34→09:18)
[2019-01-26] MEDS ORDERED: LIDOCAINE HCL/PF 2% SDV 5ML VIAL ONE (07:34)
[2019-01-26] MEDS ORDERED: ONDANSETRON 4 MG/2 ML VIAL ONE (07:34)
[2019-01-26] MEDS ORDERED: DEXAMETHASONE SOD PHOSPHATE 4 MG/1 ML VIAL ONE (07:34)
[2019-01-26] MEDS ORDERED: KETOROLAC TROMETHAMINE 30 MG/1 ML VIAL ONE (07:34)
[2019-01-26] MEDS ORDERED: SODIUM CHLORIDE 0.9% P/F 10 ML VIAL IJ ONE (07:34)
[2019-01-26] MEDS ORDERED: ROPIVACAINE HCL 0.5% 30ML VIAL ONE (07:59)
[2019-01-26] MEDS ORDERED: MIDAZOLAM HCL 2 MG/2 ML SINGLE DOSE VIAL ONE ×2 (08:00)
[2019-01-26] MEDS ORDERED: DESFLURANE GAS 240 ML BOTTLE IH ONE (08:28)
[2019-01-26] MEDS ORDERED: ceFAZolin SODIUM 1 GM VIAL IVPB ONE (08:29)
[2019-01-26] MEDS ORDERED: ROCURONIUM BROMIDE 50 MG/5 ML SYRINGE ONE (08:38)
[2019-01-26] MEDS ORDERED: GLYCOPYRROLATE 0.2 MG/1 ML VIAL ONE (09:07)
[2019-01-26] MEDS ORDERED: NEOSTIGMINE METHYLSULFATE 0.5 MG/1 ML - 10 ML MDV ONE (09:07)
[2019-01-26] MEDS ORDERED: oxyCODONE HCL 5 MG TABLET PO PRN ×2 (10:34)
[2019-01-26] MEDS ORDERED: ONDANSETRON 4 MG/2 ML VIAL IVPUSH PRN (10:34)
[2019-01-26] MEDS ORDERED: LACTATED RINGERS SOLUTION 1,000 ML IV SCH (10:45)
--- NOTE | 2019-01-26 12:22 | OP ---
DATE OF OPERATION: 01/26/2019 PREOPERATIVE DIAGNOSES: Bilateral inguinal hernias (incarcerated left), atrial fibrillation, diabetes, pancreatic cancer. POSTOPERATIVE DIAGNOSES: Bilateral inguinal hernias (incarcerated indirect left, indirect right), atrial fibrillation, diabetes, pancreatic cancer. PROCEDURE: Laparoscopic repair of incarcerated left inguinal hernia with mesh, laparoscopic repair of right inguinal hernia with mesh. SURGEON: Heri Barnard MD CODING AUDITOR: Raffi Manning MD ANESTHESIA: Edu Alan MD (general). ESTIMATED BLOOD LOSS: Minimal. SPECIMEN: None. INDICATION FOR PROCEDURE: This is a 73-year-old gentleman with known bilateral inguinal hernias for many, many years. The one on the left is rather large and approximately the size of my fist. It is chronically incarcerated. He now has discomfort and wished to have these repaired. DESCRIPTION OF PROCEDURE: Patient identified and appropriately positioned on the operating room table. After placement of general anesthesia the abdomen prepped and draped in the usual sterile fashion with ChloraPrep. An infraumbilical incision was made, deepened through subcutaneous tissue. The fascia on the left was identified, divided sharply. The rectus muscle split. Under direct vision dissector balloon followed by a structural balloon placed. Also under direct vision a suprapubic 11-mm port placed. The following structures on the left side identified: Pubic tubercle, John ligament, inferior epigastric vessels, spermatic cord and lateral abdominal wall. During this dissection he had no direct component. He had a large indirect inguinal hernia sac reduced back into the preperitoneal space with blunt and sharp dissection. A 5 x 6 piece of Versatex mesh was keyholed, placed through the superior port site. The mesh wrapped around the cord structures laterally to reconstruct the internal ring. Laterally mesh anchored to the anterior abdominal wall and lateral abdominal wall. Medially mesh anchored to the anterior abdominal wall, pubic tubercle and John ligament. Upon completion of the left side the same structures on the right side were identified. On the right he had no direct component as well. He had an indirect inguinal hernia sac of moderate to large size as well. This reduced back into the preperitoneal space with sharp dissection. Another 5 x 6 piece of Versatex mesh was keyholed, placed through the superior port site. The mesh wrapped around the cord structures laterally to reconstruct the internal ring. Laterally mesh anchored to the anterior abdominal wall and lateral abdominal wall. Medially mesh well overlapped in the midline, anchored to the anterior abdominal wall, pubic tubercle and John ligament. The preperitoneal space desufflated under direct vision. The operative field noted to be hemostatic, port sites hemostatic. The port sites reapproximated with interrupted 0 Vicryl suture. All skin closed with 4-0 subcuticular Biosyn. All anterior abdominal wall and lateral abdominal wall anchors placed under direct counterpalpation. The anchoring system was AbsorbaTack and the mesh used was Versatex 15 x 15 times 2. At the conclusion of the case sponge, needle and instrument counts were correct. ATTESTATION: Brief operative note handwritten on the preprinted form. [facility] queried prior to giving any narcotics. Paul DALEY [id number] cc: MD Ritchie Craven MD
[2019-01-26 19:47] VITALS: TEMP 98.2
[2019-01-26 19:50] VITALS: BP 120/70; PULSE 88
== END 2019-01-26 14:50 | disposition home or self-care (01) ==
LOC: JASU-SURG 06:10
PROVIDERS: ATTEND Surgery
PROC: 0YUA4JZ Supplement Bilateral Inguinal Region with Synthetic Substitute, Percutaneous Endoscopic Approach (ICD-10-PCS; principal; 2019-01-26 08:00)
DX: K40.00 Bilateral inguinal hernia, with obstruction, without gangrene, not specified as recurrent (principal); I48.91 Unspecified atrial fibrillation; E11.9 Type 2 diabetes mellitus without complications; C25.9 Malignant neoplasm of pancreas, unspecified; Z76.89 Persons encountering health services in other specified circumstances
CPT/HCPCS: 82962; 94760

== ENCOUNTER 2019-09-12 09:41 | Inpatient (IN) | payer OTHER, BC ==
[2019-09-12] MEDS ORDERED: morphine CARPU-JECT 4 MG/1 ML DISP.SYRIN IVPUSH ONE ×3 (09:53→13:11)
--- NOTE | 2019-09-12 09:56 | PDOC ---
History of Present Illness - General Chief Complaint: Injury Stated Complaint: FALL/LOWER EXTREMITY INJ Time Seen by Provider: 09/12/19 09:49 History Source: Patient Exam Limitations: No Limitations - History of Present Illness Initial Comments: 09/12/19 09:54 74y M with PMH of Pancreatic Ca in remission, Afib (apixaban), DM, HTN, presenting to the ER via EMS for fracture/dislocation. Pt says he was getting out of the shower when the L knee "buckled" and his knee popped. He denies hitting his head or LOC. He endorses pain in the L knee. Pt was recently discharged last week for choledocalithiasis for which he was to follow up today. Denies headache, neck pain, abdominal pain, back pain, chest pain, sob, n/v/d, numbness, weakness, changes in vision. PMD: Rosch Onc: At [facility] PMH: see hpi PSH: whipple's resection Meds: Berkley Gee Allergies: nkda Past History - Medical History Allergies/Adverse Reactions: Allergies Allergy/AdvReac Type Severity Reaction Status Date / Time No Known Drug Allergies Allergy Verified 09/12/19 09:45 Home Medications: Ambulatory Orders Lisinopril [Zestril] 0 mg PO DAILY 04/07/17 Apixaban [Eliquis] 2.5 mg PO BID 01/25/19 Cholecalciferol (Vitamin D3) [Vitamin D3] 25 mcg PO DAILY 01/25/19 Cyanocobalamin [Vitamin B12 -] 1,000 mcg PO DAILY 01/25/19 Diltiazem HCl [Diltiazem ER] 0 mg PO DAILY 01/25/19 Glyburide 5 mg PO ACDIN 01/25/19 Glyburide 10 mg PO DAILY 01/25/19 Paroxetine HCl [Paxil] 20 mg PO DAILY 01/25/19 Insulin Aspart [Novolog] 0 unit SQ ASDIR 09/12/19 Insulin Glargine,Hum.rec.anlog [Lantus] 20 unit SQ DAILY 09/12/19 Anemia: No Asthma: No Cancer: Yes (pancreas (in remission)) Cardiac Disorders: Yes (A fib) CVA: No COPD: No CHF: No Dementia: No Diabetes: Yes GI Disorders: No Disorders: Yes (H/O KIDNEY STONE) HTN: No Hypercholesterolemia: No Liver Disease: No Seizures: No Thyroid Disease: No - Surgical History Appendectomy: Yes Cholecystectomy: Yes (3 weks ago) Orthopedic Surgery: No (LEFT KNEE SX & TENDON SX) - Immunization History Immunization Up to Date: Yes - Psycho-Social/Smoking History Smoking History: Never smoked Have you smoked in the past 12 months: No - Substance Abuse Hx (Audit-C & DAST Scrn) How often the patient has a drink containing alcohol: Never Score: In Men: 4 or > Positive; In Women: 3 or > Positive: 0 Screen Result (Pos requires Nsg. Audit-10AR): Negative In the last yr the pt used illegal drug/Rx for NonMed reason: No Score: Yes response is considered Positive: 0 Screen Result (Positive result requires Nsg. DAST-10): Negative Review of Systems - Review of Systems Constitutional: No: Symptoms Reported HEENTM: No: Symptoms Reported Respiratory: No: Symptoms reported Cardiac (ROS): No: Symptoms Reported ABD/GI: No: Symptoms Reported : No: Symptoms Reported Musculoskeletal: Yes: See HPI Integumentary: No: Symptoms Reported Neurological: No: Symptoms reported *Physical Exam - Vital Signs Last Vital Signs Temp Pulse Resp BP Pulse Ox 97.8 F 110 H 20 170/87 99 09/12/19 09:43 09/12/19 09:43 09/12/19 09:43 09/12/19 09:43 09/12/19 09:43 - Physical Exam General Appearance: Yes: Moderate Distress, Thin HEENT: positive: EOMI, MIRI. negative: Scleral Icterus (R), Scleral Icterus (L) Neck: positive: Trachea midline, Supple. negative: Lymphadenopathy (R), L ymphadenopathy (L) Respiratory/Chest: positive: Lungs Clear, Normal Breath Sounds. negative: Crackles, Rales, Rhonchi, Stridor, Wheezing Cardiovascular: positive: S1, S2, Irregularly Irregular. negative: Edema, JVD, Murmur Vascular Pulses: Dorsalis-Pedis (R): 2+, Doralis-Pedis (L): 2+ Comments:: 09/12/19 18:27 PT 2+ Popliteal 2+ Gastrointestinal/Abdominal: positive: Normal Bowel Sounds, Soft, Other. negative: Distended, Guarding, Rebound Musculoskeletal: positive: Other (RLE normal. LLE: hip and knee flexed, slight external rotation at knee. Knee appears deformed. tib/fib appers grossly normal. normal ankles. No hip tenderness.). negative: CVA Tenderness Extremity: positive: Normal Capillary Refill, Other (flexed L knee with deformity at distal femur/knee. pt unable to move knee. ). negative: Swelling, Calf Tenderness Integumentary: positive: Normal Color, Dry, Warm, Other (abrasion to dorsal L foot and distal LLE.) Neurologic: positive: database administration associate II-XII NML intact, Fully Oriented, Alert, Normal Mood/Affect, Normal Response, Motor Strength 06/27 ED Treatment Course - LABORATORY CBC & Chemistry Diagram: 09/12/19 10:10 09/12/19 10:10 Medical Decision Making - Medical Decision Making 09/12/19 09:56 74y M with PMH of pancreatic Ca s/p Whipple's procedure in remission x1y, afib (eliquis), DM presenting to the ER for knee pain with fracture/dislocation. vitals wnl PE shows LLE in flexion, obvious deformity to L knee. Pt unable to move extremity however moves toes, sensation intact, pulses intact. suspect fracture +/- dislocation +/- vascular involvement. DPs 2+ bilaterally. given 50mcg Fentanyl by EMS. -will give pain medication. Will need to image extremity but knee will need to be extended for proper imaging. Will control pain and give Ketamine. Oncologist made aware. 09/12/19 11:05 Ketamine given (total 100mg) pt tolerated reduction/extension well. Xray at bedside shows closed distal comminuted femur fx with displacement. Ortho consulted (Dr. Montesinos). Knee immobilizer placed. will obtain CT. given proximity, will obtain CTA. preop labs drawn. ekg: afib at 95bpm. no malissa or depressions. no signs of acute ischemia. 09/12/19 18:29 xrays show old proximal tibial fx, no other fx noted. CTA results with distal femur fx comminuted with dislocation. popliteal aa shows filling defect, intimal involvement v. thrombus. Vascular made aware: do not suspect arterial involvement at this time. ortho given results of CT. plan to operate on . will admit for fx, pain control and operative fix of fracture likely pathological fx. Discharge - Discharge Information Problems reviewed: Yes Clinical Impression/Diagnosis: Closed displaced supracondylar fracture of distal end of left femur with intracondylar extension Qualifiers: Encounter type: initial encounter Qualified Code(s): S72.462A - Displaced supracondylar fracture with intracondylar extension of lower end of left femur, initial encounter for closed fracture Condition: Stable - Admission Yes - Follow up/Referral - Patient Discharge Instructions - Post Discharge Activity
[2019-09-12] MEDS ORDERED: KETAMINE HCL 200 MG/20 ML VIAL IVPUSH ONE ×2 (10:07→11:09)
[2019-09-12] MEDS ORDERED: KETAMINE HCL 200 MG/20 ML VIAL ONE (10:12)
[2019-09-12 10:22] LABS: BASO % 1.5 % (0-2.0); EOS % 2.8 % (0-4.5); HEMATOCRIT 43.4 % (35.4-49); HEMOGLOBIN 14.2 GM/dL (11.7-16.9); LYMPH % 35.5 % (8-40); MCH 31.4 pg (25.7-33.7); MCHC 32.7 g/dl (32.0-35.9); MEAN CELL VOLUME 95.9 fl (80-96); MEAN PLT VOLUME 8.4 fl (7.5-11.1); MONO % 7.2 % (3.8-10.2); PLATELET COUNT 584 K/MM3 (134-434); RBC 4.53 M/mm3 (4.00-5.60); RDW 14.5 % (11.9-15.9); WHITE BLOOD COUNT 8.6 K/mm3 (4.0-10.0)
[2019-09-12] MEDS ORDERED: BACITRACIN 0.9 GM PACKET ONE (10:25)
[2019-09-12 10:29] LABS: INR 1.18 (0.83-1.09); PROTHROMBIN TIME (PATIENT) 13.9 SEC (9.7-13.0)
[2019-09-12 10:31] LABS: ACTIVATED PTT 32.5 SECONDS (25.2-36.5)
--- NOTE | 2019-09-12 10:53 | PDOC ---
Documentation entered by Felecia Campbell SCRIBE, acting as scribe for Vikki Hughes MD. Vikki Hughes MD: This documentation has been prepared by the rema, Felecia Gordon SCRIBE, under my direction and personally reviewed by me in its entirety. I confirm that the documentation accurately reflects all work, treatment, procedures, and medical decision making performed by me. Attending Attestation - Resident Resident Name: Germaine Asif - ED Attending Attestation I have performed the following: I have examined & evaluated the patient, The case was reviewed & discussed with the resident, I agree w/resident's findings & plan, Exceptions are as noted - HPI HPI: 09/12/19 09:54 The patient is a 74-year-old male with a significant past medical history of IDDM, a-fib, HTN, CBD malignancy (s/p pancreatectomy, splenectomy, cholecystectomy, now on remission), who presents to the emergency department BIBA for evaluation of left knee injury. Patient states that he was stepping out of the shower at which time he felt his left knee "buckle" and subsequently fell to the floor. Patient is endorsing left knee pain. The patient denies LOC, head trauma. The patient denies chest pain, shortness of breath, headache and dizziness. Denies fever, chills, nausea, vomiting, diarrhea and constipation. Denies dysuria, frequency, urgency and hematuria. Patient is on eliquis for his afib but reports he did not take his AM dose today. Allergies: NKDA Past Surgical History: s/p pancreatectomy, splenectomy, cholecystectomy (2 years ago) Social History: No toxic habits reported PCP: Dr. Edis Becerra Social Worker School: Dr. Schwartz Veterinary Meat Inspector: Dr. Ritchie Rosado ([place]) - Physicial Exam PE: 09/12/19 10:46 General: uncomfortable appearing HEENT: NCAT, EOMI Chest: CTAB, good air entry CVS: + s1 s2, irregularly irregular Extremities: no pelvic instability, + superficial laceration to L dorsum of foot ~3cm and anterior lower leg ~8 cm without active bleeding, able to wiggle toes b/l, LLE held in flexion at knee with gross deformity just proximal to L knee, +DP pulses, sensation intact to light touch Neuro: Aox3, responds appropriately to questions, speech fluent, face symmetric, able to move all extremities freely with exception of LLE - Critical Care Time Total Critical Care Time: 30 Critical Care Statement: The care of this patient involved high complexity decision making to prevent further life threatening deterioration of the patient's condition and/or to evaluate & treat vital organ system(s) failure or risk of failure. - Medical Decision Making 09/12/19 10:49 74 yo M with obvious LLE deformity, given mechanism and h/o CA concerning for pathologic fracture. Also possible age related osteopenia. Also possible dislocation although patient with good DP pulses so lower suspicion for vascular compromise. Plan: -labs -cxr -pelvis xray -xray L femur -xr L knee -CT head -CT c-spine -CT L knee -ortho consult -pain control as needed -admit This clinical encounter is taking place during a federal and state health care emergency attributable to the novel [place] Virus pandemic. The [place] of the Department of Health and Human Services has declared, pursuant to the Public Health Service Act 319F-3 (42 U.S.C. 247d-6d), that a covered persons activities related to medical countermeasures against COVID-19 will be immune from liability under Federal and State law. Discharge - Discharge Information Problems reviewed: Yes Clinical Impression/Diagnosis: Closed displaced supracondylar fracture of distal end of left femur with intraco ndylar extension Qualifiers: Encounter type: initial encounter Qualified Code(s): S72.462A - Displaced supracondylar fracture with intracondylar extension of lower end of left femur, initial encounter for closed fracture Condition: Stable - Follow up/Referral - Patient Discharge Instructions - Post Discharge Activity
[2019-09-12 10:54] LABS: ALBUMIN 2.8 g/dl (3.4-5.0); BILIRUBIN,TOTAL 0.7 mg/dL (0.2-1); BLOOD UREA NITROGEN 9.1 mg/dL (7-18); CALCIUM 8.8 mg/dL (8.5-10.1); CREATININE 0.8 mg/dL (0.55-1.3); POTASSIUM 4.4 mmol/L (3.5-5.1); TOT PROT 7.5 g/dl (6.4-8.2)
[2019-09-12] MEDS ORDERED: morphine SULFATE 4 MG/ML VIAL ONE ×2 (11:32→13:16)
--- NOTE | 2019-09-12 11:52 | EKG ---
Test Reason : Blood Pressure : / mmHG Vent. Rate : 095 BPM Atrial Rate : 091 BPM P-R Int : 000 ms QRS Dur : 080 ms QT Int : 364 ms P-R-T Axes : 000 027 048 degrees QTc Int : 457 ms ATRIAL FIBRILLATION ANTEROSEPTAL INFARCT , AGE UNDETERMINED ABNORMAL ECG WHEN COMPARED WITH ECG OF 07-APR-2017 15:02, ANTEROSEPTAL INFARCT IS NOW PRESENT T WAVE INVERSION NO LONGER EVIDENT IN INFERIOR LEADS T WAVE INVERSION NO LONGER EVIDENT IN ANTEROLATERAL LEADS Confirmed by Audi Bhatt ([id number]) on 09/12/2019 11:52:08 AM Referred By: Confirmed By:Audi Bhatt
[2019-09-12] MEDS ORDERED: LIDOCAINE HCL 1%, 10 MG/ML (20ML VIAL) ONE (13:20)
[2019-09-12] MEDS ORDERED: BUPIVACAINE HCL/PF 0.5% (5 MG/ML) 30 ML VIAL IJ ONE (13:21)
[2019-09-12] MEDS ORDERED: HYDROmorphone HCL CARPU-JECT 2 MG/1 ML DISP.SYRIN IVPUSH ONE ×2 (14:59→17:17)
[2019-09-12] MEDS ORDERED: HYDROmorphone HCl 2 MG/ML VIAL ONE ×2 (15:00→17:19)
[2019-09-12] MEDS ORDERED: dilTIAZem HCL 50 MG/10 ML - 10 ML VIAL IVPUSH ONE (17:01)
--- NOTE | 2019-09-12 17:10 | HP ---
CHIEF COMPLAINT: Left knee pain PCP: Toya HISTORY OF PRESENT ILLNESS: 74M w/ pmh of pancreatic Ca(dx in ~2017, s/p Whipple and adjuvant chemotherapy), biliary drain with recent "stone removal via ERCP" 2 weeks prior, HTN, IDDM, Afib(Eliquis) BIBA to [facility] after sustaining a Ground-Level Fall, after stepping out of the shower, subsequent severe Left knee pain. Fell with his Left leg going "90degrees". Does not know amount of time down on the ground, but immediately called for help through [employer]. No blood loss on the scene. Did not take his Eliquis this morning. Denies coolness, loss of sensation to the Left leg. Prior to fall, denies LOC, dizziness, palpitations, SOB. Has fallen 3x in the past, claiming that the latest fall 1month prior, resulted in him hitting his head against the shower with a resultant scalp laceration in which he did not seek medical evaluation. Lives alone in [facility], with GF staying over intermittently. Finished chemotherapy 6mo prior, has been seeing oncologist(Alec in [place]) q3mo. Had a RUQ drainage bag that was dc'd 1 week prior with eventual plan to remove biliary drain on the day of admission. ER course was notable for: (1) Tmax 100F, HR 110, BP 158/102 (2) CXR: neg pathology, central line noted (3) XR pelvis: neg fx/subluxation/blastic/lytic lesion. Vascular calcification noted (4) XR Left knee: comminuted distal femoral fracture, not involving the articular surface (5) CT Head: neg acute pathology, mod diffuse cerebral atrophy (6) CT cspine: mild dengenerative disesase (7) CT aorta w/ b/l runoff: possible intimal dissection at site of acute angulation of the popliteal artery above the knee (8) ED consulted Jaguar (9) ED consulted Zack, who did not agree with the intimal dissection (10) sp LLE splinting (11) administered morphine 4mg, 4, 6, ketamine 100, dilaudid 0.5mg Recent Travel: denies PAST MEDICAL HISTORY: as above PAST SURGICAL HISTORY: ?whipple Social History: Smoking: once or twice at 13y/o Alcohol: denies Drugs: denies Allergies No Known Drug Allergies Allergy (Verified 09/12/19 09:45) HOME MEDICATIONS: Home Medications Medication Instructions Recorded Lisinopril [Zestril] 0 mg PO DAILY 04/07/17 Apixaban [Eliquis] 2.5 mg PO BID 01/25/19 Cholecalciferol (Vitamin D3) 25 mcg PO DAILY 01/25/19 [Vitamin D3] Cyanocobalamin [Vitamin B12 -] 1,000 mcg PO DAILY 01/25/19 Diltiazem HCl [Diltiazem ER] 0 mg PO DAILY 01/25/19 Glyburide 5 mg PO ACDIN 01/25/19 Glyburide 10 mg PO DAILY 01/25/19 Paroxetine HCl [Paxil] 20 mg PO DAILY 01/25/19 Insulin Aspart [Novolog] 0 unit SQ ASDIR 09/12/19 Insulin Glargine,Hum.rec.anlog 20 unit SQ DAILY 09/12/19 [Lantus] REVIEW OF SYSTEMS CONSTITUTIONAL: Absent: fever, chills, diaphoresis, generalized weakness, malaise, loss of appetite, weight change HEENT: Absent: rhinorrhea, nasal congestion, throat pain, throat swelling, difficulty swallowing, mouth swelling, ear pain, eye pain, visual changes CARDIOVASCULAR: Absent: chest pain, syncope, palpitations, irregular heart rate, lightheadedness, peripheral edema RESPIRATORY: Absent: cough, shortness of breath, dyspnea with exertion, orthopnea, wheezing, stridor, hemoptysis GASTROINTESTINAL: Absent: abdominal pain, abdominal distension, nausea, vomiting, diarrhea, constipation, melena, hematochezia GENITOURINARY: Absent: dysuria, frequency, urgency, hesitancy, hematuria, flank pain, genital pain MUSCULOSKELETAL: LLE knee selling and leg pain Absent: myalgia, arthralgia, back pain, neck pain SKIN: Absent: rash, itching, pallor HEMATOLOGIC/IMMUNOLOGIC: Absent: easy bleeding, easy bruising, lymphadenopathy, frequent infections ENDOCRINE: Absent: unexplained weight gain, unexplained weight loss, heat intolerance, cold intolerance NEUROLOGIC: Absent: headache, focal weakness or paresthesias, dizziness, unsteady gait, seizure, mental status changes, bladder or bowel incontinence PSYCHIATRIC: Absent: anxiety, depression, suicidal or homicidal ideation, hallucinations. PHYSICAL EXAMINATION Vital Signs - 24 hr 09/12/19 09/12/19 09/12/19 09:43 10:03 10:38 Temperature 97.8 F 100.0 F H Pulse Rate 110 H Pulse Rate [ 103 H 98 H Left Radial] Respiratory 20 16 18 Rate Blood Pressure 170/87 Blood Pressure 167/97 188/97 H [Left Arm] O2 Sat by Pulse 99 98 97 Oximetry (%) 09/12/19 09/12/19 09/12/19 11:24 11:50 13:41 Temperature 98.8 F Pulse Rate Pulse Rate [ 93 H 101 H Left Radial] Respiratory 17 18 Rate Blood Pressure Blood Pressure 143/89 137/96 [Left Arm] O2 Sat by Pulse 98 97 95 Oximetry (%) 09/12/19 14:00 Temperature 98.6 F Pulse Rate Pulse Rate [ Left Radial] Respiratory Rate Blood Pressure Blood Pressure [Left Arm] O2 Sat by Pulse Oximetry (%) GENERAL: Awake, alert, and fully oriented, in mild acute distress. HEAD: NC, AT, no scalp hematomas noted. Mild temporal wasting EYES: sclera anicteric, conjunctiva clear EARS, NOSE, THROAT: Moist mucous membranes. NECK: Normal range of motion, supple without lymphadenopathy, JVD, or masses. LUNGS: Breath sounds equal, clear to auscultation bilaterally. No wheezes, and no crackles. No accessory muscle use. HEART: rate up to 120s at overhead monitors, irregular rhythm, normal S1 and S2 without murmur, rub or gallop. ABDOMEN: well-healed midline surgical scar. Soft, nontender, not distended, no guarding, no rebound. RUQ with IR biliary(?intrahepatic) drain. MUSCULOSKELETAL: No CVA tenderness. Left knee swelling w/ effusion, LLE in splint UPPER EXTREMITIES: 2+ pulses, warm, well-perfused. No cyanosis. No clubbing. No peripheral edema. LOWER EXTREMITIES: 2+ DP b/l, 1+ PT b/l, warm, well-perfused. No RLE calf tenderness. Sensation intact b/l. No coolness to LLE NEUROLOGICAL: Normal speech. SKIN: Warm, dry, normal turgor, no rashes or lesions noted, normal capillary refill. Laboratory Results - last 24 hr 09/12/19 09/12/19 09/12/19 10:10 10:10 10:10 WBC 8.6 RBC 4.53 Hgb 14.2 Hct 43.4 MCV 95.9 MCH 31.4 MCHC 32.7 RDW 14.5 Plt Count 584 H D MPV 8.4 Absolute Neuts (auto) 4.6 Neutrophils % 53.0 Lymphocytes % 35.5 D Monocytes % 7.2 Eosinophils % 2.8 D Basophils % 1.5 Nucleated RBC % 0 PT with INR 13.90 H INR 1.18 H PTT (Actin FS) 32.5 Sodium 135 L Potassium 4.4 Chloride 97 L Carbon Dioxide 28 Anion Gap 11 BUN 9.1 Creatinine 0.8 Est GFR (CKD-EPI)AfAm 102.71 Est GFR (CKD-EPI)NonAf 88.62 POC Glucometer Random Glucose 292 H Calcium 8.8 Total Bilirubin 0.7 AST 80 H ALT 45 Alkaline Phosphatase 258 H Total Protein 7.5 Albumin 2.8 L Blood Type Antibody Screen 09/12/19 09/12/19 09/12/19 10:10 15:42 15:51 WBC RBC Hgb Hct MCV MCH MCHC RDW Plt Count MPV Absolute Neuts (auto) Neutrophils % Lymphocytes % Monocytes % Eosinophils % Basophils % Nucleated RBC % PT with INR INR PTT (Actin FS) Sodium Potassium Chloride Carbon Dioxide Anion Gap BUN Creatinine Est GFR (CKD-EPI)AfAm Est GFR (CKD-EPI)NonAf POC Glucometer 203 190 Random Glucose Calcium Total Bilirubin AST ALT Alkaline Phosphatase Total Protein Albumin Blood Type B POSITIVE Antibody Screen Negative ASSESSMENT/PLAN: 74M w/ pmh of pancreatic Ca(dx in ~2017, s/p Whipple and adjuvant chemotherapy), HTN, IDDM, Afib(Eliquis) BIBA to [facility] after sustaining a Ground-Level Fall, after stepping out of the shower, subsequent severe Left knee pain. Fell with his Left leg going "90degrees". Imaging notable for LLE distal femur comminuted fracture. Pt placed in splint in the ED. CTA done d/t Ortho request for CT; and ED wanted to evaluate for trauma of politeal artery d/t location of fx. #LLE distal comminuted femur fracture > XR Left knee: comminuted distal femoral fracture, not involving the articular surface - HOLD AC and home Eliquis - NWB to LLE - PT - pain mgmt: morphine 2mg, 4mg PRN - Ortho consult(Montesinos): --recs pending, possible OR on #RUQ biliary drain - dressing changes daily - do NOT aspirate from catheter #politeal intimal "dissection" --questionable - Vascular consult(Zack): --does not agree with radiologic interpretation --formal recs to follow #AFib > [id number] - HOLDING Eliquis for surgery this week - cw home Cardizem 360mg QD #HTN - cw home cardizem, lisinopril #IDDM - cw home lantus 20U daily - ISS FEN - no mIVF - diabetic diet DVT PPX: - SCDs Family Medical History Family Hx Cancer: Father (throat caner) Family Hx Coronary Artery Disease: Father ([place]) Visit type - Medication Review Med list reviewed for High Risk Meds patients 65 and older: Yes - Emergency Visit Emergency Visit: Yes ED Registration Date: 09/12/19 Care time: The patient presented to the Emergency Department on the above date and was hospitalized for further evaluation of their emergent condition. - New Patient This patient is new to me today: Yes Date on this admission: 09/12/19 - Critical Care Critical Care patient: No ATTENDING PHYSICIAN STATEMENT I saw and evaluated the patient. I reviewed the resident's note and discussed the case with the resident. I agree with the resident's findings and plan as documented. SUBJECTIVE: OBJECTIVE: ASSESSMENT AND PLAN:
[2019-09-12] MEDS ORDERED: ONDANSETRON 4 MG/2 ML VIAL IVPB ONE (17:13)
[2019-09-12] MEDS ORDERED: dilTIAZem HCL 125 MG/25 ML - 25 ML VIAL ONE (17:13)
[2019-09-12] MEDS ORDERED: morphine CARPU-JECT 2 MG/1 ML DISP.SYRIN IVPUSH PRN (17:18)
--- NOTE | 2019-09-12 17:49 | CON.ORTH ---
Consult Consult Specialty:: orthopedic surgery - History of Present Illness Chief Complaint: L knee pain History of Present Illness: 74-year-old gentleman presents to the hospital with complaints of left knee pain and inability to weight-bear after falling just outside the shower. He felt like leg gave way and then he fell. His history is significant for pancreatic cancer. He notes pain only in this area. He has a prior history of ORIF of the tibial plateau 10 years ago. He has no numbness or tingling. It should also be noted he is on Eliquis for atrial fibrillation.4-year-old gentleman presents to the hospital with complaints of left knee pain and inability to weight-bear after falling just outside the shower. He felt like leg gave way and then he fell. His history is significant for pancreatic cancer. He notes pain only in this area. He has a prior history of ORIF of the tibial plateau 10 years ago. He has no numbness or tingling. It should also be noted he is on Eliquis for atrial fibrillation. - History Source History Provided By: Patient, Medical Record - Past Medical History Cardio/Vascular: Yes: AFIB, HTN Hepatobiliary: Yes: Choledocholithiasis Endocrine: Yes: Diabetes Mellitus - Alcohol/Substance Use Hx Alcohol Use: Yes (occas light beer) - Smoking History Smoking history: Never smoked Have you smoked in the past 12 months: No Home Medications - Allergies Allergies/Adverse Reactions: Allergies Allergy/AdvReac Type Severity Reaction Status Date / Time No Known Drug Allergies Allergy Verified 09/12/19 09:45 - Home Medications Home Medications: Ambulatory Orders Lisinopril [Zestril] 0 mg PO DAILY 04/07/17 Apixaban [Eliquis] 2.5 mg PO BID 01/25/19 Cholecalciferol (Vitamin D3) [Vitamin D3] 25 mcg PO DAILY 01/25/19 Cyanocobalamin [Vitamin B12 -] 1,000 mcg PO DAILY 01/25/19 Diltiazem HCl [Diltiazem ER] 0 mg PO DAILY 01/25/19 Glyburide 5 mg PO ACDIN 01/25/19 Glyburide 10 mg PO DAILY 01/25/19 Paroxetine HCl [Paxil] 20 mg PO DAILY 01/25/19 Insulin Aspart [Novolog] 0 unit SQ ASDIR 09/12/19 Insulin Glargine,Hum.rec.anlog [Lantus] 20 unit SQ DAILY 09/12/19 Review of Systems - Review of Systems Constitutional: denies: Chills, Diaphoresis, Fever Cardiovascular: denies: Chest Pain, Edema, Palpitations Respiratory: denies: Cough, Exercise Intolerance, Hemoptysis Genitourinary: denies: Burning, Discharge, Dysuria Physical Exam for Ortho Vital Signs: Vital Signs Temperature 98.6 F 09/12/19 14:00 Pulse Rate 123 H 09/12/19 17:17 Respiratory Rate 18 09/12/19 17:17 Blood Pressure 125/71 09/12/19 17:17 O2 Sat by Pulse Oximetry (%) 96 09/12/19 17:17 Constitutional: Yes: Well Nourished, No Distress, Calm Cardiovascular: Yes: Pulse Irregular Respiratory: Yes: Regular Gastrointestinal: Yes: Soft. No: Distention Labs: CBC, BMP 09/12/19 10:10 09/12/19 10:10 INR, PTT INR 1.18 (0.83-1.09) H 09/12/19 10:10 - Lower Extremity Knee: Yes: Left, Assymetrical, Deformity, Pain, Swelling, Tenderness (externally rotated, swollen but compartments are soft). No: Erythema, Laceration Foot: Yes: Left, Abrasion, Other (ehl fhl ta g s intact) - Affected Extremity Peripheral Pulses: 2+ Left Doralis Pedis Neuro/Vascular Assessment: Yes: Warm, Kingsley, Normal Sensation Imaging - Results X-ray: Report Reviewed, Image Reviewed Cat Scan: Report Reviewed, Image Reviewed (highly comminuted distal femur fracture with intra-articular extension) Problem List - Problems (1) Closed displaced supracondylar fracture of distal end of left femur with intracondylar extension Assessment/Plan: I reviewed today's findings with Ilia. We discussed that there is a fracture of the lower end of the femur. We discussed the option of nonoperative care. This involves typically splint or brace immobilization. Femoral fractures do not reduce themselves, meaning they will not grow back in a straight line if they heal in the wrong spot. This fracture is displaced and rotated, it will not heal with a good functional result. We also discussed the option of operative care which is highly recommended. Typically involves utilizing a plate and screws to restore and maintain the proper alignment to the bone. An incision is made over the lower thigh. The bone is then put back in place and held in place with a plate and screws. The surgery involves risks including bleeding, infection, neurovascular injury, need for further surgery (including revision if the fracture does not heal or plate removal), postoperative pain and stiffness, nonunion, malunion, hardware failure or cutout. We discussed medical risks such as heart attack, stroke, DVT, PE and . I discussed the use of perioperative antibiotic and DVT prophylaxis. Specifically for this fracture, there is extreme comminution present. While the CT scan does not show any particular pathologic lesion, it is possible that this would be missed due to the amount of damage caused to the bone. If there is any suspicion for a lesion, a biopsy will be taken at the time of this procedure. If the biopsy is positive, there is high likelihood that the lesion would impair the healing, necessitating another surgery or even amputation depending on the extent of the lesion. Even without a lesion, the amount of comminution may require bone grafting if healing is insufficient. Allograft or synthetic bone graft may be used at the time of the procedure to aide in bony healing. I reviewed the postoperative protocol including use of a brace, followed by physical therapy to regain range of motion and strength. I addressed all of Ilia's questions and concerns. The plan at this time is to proceed with surgery. We will wait 72h for the Marlen to metabolize and plan for the case on . He should be on LMWH for DVT prophylaxis. Problems reviewed: Yes Code(s): S72.462A - DISPL SUPRCNDL FX W INTRCNDL EXTN LOWER END OF L FEMUR, INIT Qualifiers: Encounter type: initial encounter Qualified Code(s): S72.462A - Displaced supracondylar fracture with intracondylar extension of lower end of left femur, initial encounter for closed fracture
--- NOTE | 2019-09-12 18:37 | PN ---
Teaching Attending Note Name of Resident: Jeffery Mcdonough ATTENDING PHYSICIAN STATEMENT I saw and evaluated the patient. I reviewed the resident's note and discussed the case with the resident. I agree with the resident's findings and plan as documented. SUBJECTIVE:This is a 72 year old male with a significant past medical history of IDDM, afib, HTN, CBD malignancy s/p pancreatectomy, splenectomy, cholecystectomy, presenting to the ER via EMS for fracture/dislocation. Pt says he was getting out of the shower when the L knee "buckled" and he hit the floor and developed pain in the left knee, He denies hitting his head or LOC. He endorses pain in the L knee. Pt was recently discharged last week for choledocalithiasis for which he was to follow up today. had ERCp and was relieved, Denies headache, neck pain, abdominal pain, back pain, chest pain, sob, n/v/d, numbness, weakness, changes in vision. it was trip and fall, no LOC, OBJECTIVE: O/E is comfortable, nad, alert awake , oriented into 3, vss neck supple no jvd cvs s1/s2/0 chest ctab abd benign, Drain in pace, on the R side after the ERCP, ext no c/c/e . L knee in stabilzer, swollen knee, neuro non focal, ASSESSMENT AND PLAN: 74y M with PMHThis is a 72 year old male with a significant past medical history of IDDM, afib, HTN, CBD malignancy s/p pancreatectomy, splenectomy, cholecystectomy, (1) Closed displaced supracondylar fracture of distal end of left femur with intracondylar extension fracture distal femur on xray, had reduction and extention in ER, pt tolerated reduction/extension well. Xray at bedside shows closed distal comminuted femur fx with displacement. Ortho consult(Dr. Montesinos) and appreciated . Knee immobilizer placed. ekg: afib at 95bpm. no malissa or depressions. no signs of acute ischemia. xrays show old proximal tibial fx, no other fx noted. CTA results with distal femur fx comminuted with dislocation. popliteal aa shows filling defect, intimal involvement v. thrombus, vascular surgery consult with dr paulino, do not suspect arterial involvement at this time. formal consult pending, pain control and operative fix of fracture likely pathological fx. hold eliquis for 72 h, and possible ORIF on , pain management, 2)DM, RIss, 3) HTN continue home meds, 4) dvt, prophylaxis, scd, eliquis on hold. 5. drain on the R side in the bile duct, was supposed to be removed as out pt, will change the dressing
[2019-09-12] MEDS: LIPASE/PROTEASE/AMYLASE 36,000 UNIT CAPSULE PO SCH (19:38)
[2019-09-12] MEDS: INSULIN SLIDING SCALE (NOVOLOG) 1 VIAL SQ SCH (21:41)
[2019-09-12] MEDS: DOCUSATE SODIUM 100 MG CAPSULE (FP) PO SCH (21:41)
[2019-09-12] MEDS: APIXABAN 2.5 MG TABLET PO SCH ×2 (21:41→22:13)
[2019-09-12] MEDS: MORPHINE SULFATE 2 MG/ML VIAL IVPUSH PRN (21:42)
[2019-09-12 23:36] VITALS: BMI 21.4
[2019-09-13] MEDS: MORPHINE SULFATE 2 MG/ML VIAL IVPUSH PRN ×6 (01:59→23:04)
[2019-09-13] MEDS: INSULIN (LEVEMIR) 100 UNITS/ML UNITS SQ SCH (06:36)
[2019-09-13] MEDS: INSULIN SLIDING SCALE (NOVOLOG) 1 VIAL SQ SCH ×4 (06:37→21:16)
[2019-09-13 08:24] LABS: BASO % 1.3 % (0-2.0); EOS % 2.2 % (0-4.5); HEMATOCRIT 40.7 % (35.4-49); HEMOGLOBIN 13.1 GM/dL (11.7-16.9); LYMPH % 23.9 % (8-40); MCH 31.2 pg (25.7-33.7); MCHC 32.3 g/dl (32.0-35.9); MEAN CELL VOLUME 96.6 fl (80-96); MEAN PLT VOLUME 8.1 fl (7.5-11.1); MONO % 9.5 % (3.8-10.2); NEUT % 63.1 % (42.8-82.8); PLATELET COUNT 468 K/MM3 (134-434); RBC 4.22 M/mm3 (4.00-5.60); RDW 14.7 % (11.9-15.9); WHITE BLOOD COUNT 11.7 K/mm3 (4.0-10.0)
[2019-09-13] MEDS ORDERED: ACETAMINOPHEN 500 MG TABLET (FP) PO PRN (08:46)
[2019-09-13] MEDS ORDERED: DOCUSATE SODIUM 100 MG CAPSULE (FP) PO ONE (08:47)
[2019-09-13 08:57] LABS: ALBUMIN 2.7 g/dl (3.4-5.0); BLOOD UREA NITROGEN 21.7 mg/dL (7-18); CALCIUM 8.8 mg/dL (8.5-10.1); CREATININE 1.1 mg/dL (0.55-1.3); MAGNESIUM 2.4 mg/dL (1.8-2.4); PHOSPHOROUS 5.4 mg/dL (2.5-4.9); POTASSIUM 4.9 mmol/L (3.5-5.1); TOT PROT 6.9 g/dl (6.4-8.2)
[2019-09-13] MEDS ORDERED: PATIENT'S OWN MEDICATION (NON-FORMULARY) (Insulin Glargine,Hum.Rec.Anlog [Lantus] 20 UNIT) SQ SCH (10:00)
[2019-09-13] MEDS: LIPASE/PROTEASE/AMYLASE 36,000 UNIT CAPSULE PO SCH ×3 (10:13→17:16)
[2019-09-13] MEDS: DOCUSATE SODIUM 100 MG CAPSULE (FP) PO SCH ×2 (10:13→21:16)
[2019-09-13] MEDS: ENOXAPARIN NA (PORCINE) 40 MG/0.4 ML DISP.SYRIN SQ SCH (10:13)
[2019-09-13] MEDS: LISINOPRIL 20 MG TABLET (FP) PO SCH (10:14)
--- NOTE | 2019-09-13 10:25 | PN ---
Progress Note (short form) - Note Progress Note: VASCULAR SURGERY 74 yo male admitted with left knee pain and inability to weight-bear s/p slip/fall exiting the shower. Denies dizzy, weak, palpitations prior too or post fall. Denies LOC. h/o significant for tibial plateau fracture (same leg) 10 years ago resulting in ORIF. Afib on Eliquis (currently being held for impending surgery) While in the ED he had the following imaging studies: 1. XR pelvis: neg fx/subluxation/blastic/lytic lesion. Vascular calcification noted 2. XR Left knee: comminuted distal femoral fracture, not involving the articular surface 3. CT aorta w/ b/l runoff: possible intimal dissection at site of acute angu lation of the popliteal artery above the knee (findings discussed with Dr. Dixon who reviewed images and no dissection seen) Patient resting comfortably. Only has pain if he attempts to move LLE. Wearing knee immobilizer as instructed. Denies n/v/f/c, CP, palpitations, SOB or FERNANDO Last Vital Signs Temp Pulse Resp BP Pulse Ox 97.8 F 106 H 18 116/83 96 09/13/19 05:00 09/13/19 05:00 09/12/19 23:42 09/13/19 05:00 09/12/19 23:42 CBC, BMP 09/13/19 07:55 09/13/19 07:55 INR, PTT INR 1.18 (0.83-1.09) H 09/12/19 10:10 Serology Test 09/12/19 10:53 COVID-19 (ARIEL) Pending GEN: nad LLE: knee immobilizer. Swelling from mid thigh to mid todd. Moving toes without difficulty of pain. Unable to asses popliteal fossa for pulse (tried with pencil doppler and unsuccessful, a lot of swelling and unable to position properly for exam). Palpable DP and PT. Cap refill < 3 seconds. Sensory intact. A/P: 74 yo male admitted with comminuted distal femoral fracture (left) not involving articular surface. - Surgery scheduled with Dr. Adiel Montesinos ([facility]) 09/15/19 - Cont to hold Eliquis - LMWH for DVT ppx - Per Dr. Dixon no further vascular surgery input - Reconsult prn On behlaf of Dr. Dixon, Thank you for the opportunity to participate in your patient's care. Problem List - Problems (1) Closed displaced supracondylar fracture of distal end of left femur with intracondylar extension Code(s): S72.462A - DISPL SUPRCNDL FX W INTRCNDL EXTN LOWER END OF L FEMUR, INIT Qualifiers: Encounter type: initial encounter Qualified Code(s): S72.462A - Displaced supracondylar fracture with intracondylar extension of lower end of left femur, initial encounter for closed fracture (2) A-fib Code(s): I48.91 - UNSPECIFIED ATRIAL FIBRILLATION Qualifiers: Atrial fibrillation type: chronic (3) Diabetes Code(s): E11.9 - TYPE 2 DIABETES MELLITUS WITHOUT COMPLICATIONS Qualifiers: Diabetes mellitus type: type 2 Diabetes mellitus assisted insulin use: with terminal system operator use Diabetes mellitus complication status: without complication Qualified Code(s): E11.9 - Type 2 diabetes mellitus without complications; Z79.4 - intermediate frame tender (current) use of insulin (4) HTN (hypertension) Code(s): I10 - ESSENTIAL (PRIMARY) HYPERTENSION Qualifiers: Hypertension type: essential hypertension Qualified Code(s): I10 - Essential (primary) hypertension
[2019-09-13] MEDS ORDERED: PIPERACILLIN/TAZOB 3.375 GM 3.375 GM in DEXTROSE 5%-WATER - 50 ML IVPB SCH (13:00)
[2019-09-13] MEDS ORDERED: PIPERACILLIN/TAZOB 4.5 GM 4.5 GM in DEXTROSE 5%-WATER 100 ML IVPB SCH (13:15)
[2019-09-13] MEDS ORDERED: PIPERACILLIN/TAZOBACTAM 4.5 GM VIAL IVPB ONE (14:19)
[2019-09-13] MEDS ORDERED: DEXTROSE 5%-WATER 100 ML IVPB ONE (14:19)
--- NOTE | 2019-09-13 14:56 | PN ---
Progress Note (short form) - Note Progress Note: 74 yo M with PMHx of pancreatic cancer (in remission x 1 year) who sustained a left distal femur fracture yesterday. Patient is lying comfortably in bed with knee immobilizer and pillows under left leg. Notes a "burning" sensation to left ankle. Girlfriend at bedside. Last Vital Signs Temp Pulse Resp BP Pulse Ox 98.6 F 91 H 18 99/58 L 96 09/13/19 14:38 09/13/19 14:38 09/13/19 14:38 09/13/19 14:38 09/13/19 09:00 PE: LLE Left knee externally rotated and swollen Compartments soft No calf tenderness Abrasion to left todd and foot without signs of infection No swelling to left ankle Mild tenderness about lateral ankle Nontender medially Motor and sensation intact 2+ DP pulses Abnormal Lab Results 09/13/19 09/13/19 07:55 07:55 WBC 11.7 H MCV 96.6 H Plt Count 468 H BUN 21.7 H Random Glucose 161 H Phosphorus 5.4 H Alkaline Phosphatase 222 H Albumin 2.7 L A: left distal femur fracture P: Plan for OR this We discussed ORIF vs distal femur replacement Distal femur replacement may be a good option for this patient due to his low activity rate and severity of comminution Patient will consider both options and we will continue to discuss his options Remain strict NWB Continue wearing knee immobilizer Hold Eliquis LMWH for DVT prophylaxis
--- NOTE | 2019-09-13 16:03 | ECHO ---
Version: 1 Name: JARON MARIA Exam: Adult Echocardiogram Study Date: 09/13/2019, 3:02 PM Age: 74 Years MMode/2D Measurements & Calculations IVSd: 1.13 cm LVIDs: 2.9 cm LVIDd: 4.2 cm LVPWd: 1.40 cm LAV (MOD-bp): 77.9 ml LVOT diam: 2.24 cm Ao root diam: 3.3 cm LA dimension: 3.6 cm Doppler Measurements & Calculations MV E max wil: 76.2 cm/sec Med E/e': 16.7 MV A max wil: 34.9 cm/sec Med Peak E' Wil: 4.6 cm/sec MV E/A: 2.18 Lat E/e': 5.5 Lat Peak E' Wil: 13.8 cm/sec Ao max P.2 mmHg Ao V2 max: 124.6 cm/sec Procedure A two-dimensional transthoracic echocardiogram with color flow and Doppler was performed. The study was technically difficult with many images being suboptimal in quality. The patient was in atrial fibril lation with controlled ventricular rate during the exam. Left Ventricle The left ventricle is normal in size. Left ventricular systolic function is normal. Ejection Fractio n = 55%. Right Ventricle The right ventricle is grossly normal size. The right ventricular systolic function is grossly michell l. Atria The left atrium is mildly dilated. Right atrial size is normal. Mitral Valve There is moderate mitral annular calcification. There is trace mitral regurgitation. Tricuspid Valve The tricuspid valve is normal. There is mild tricuspid regurgitation. There was insufficient TR dete cted to calculate RV systolic pressure. Aortic Valve Fibrocalcific aortic valve without significant stenosis. No aortic regurgitation is present. Pulmonic Valve The pulmonic valve is not well visualized. Great Vessels Mildly dilated ascending aorta. Pericardium/Pleura There is no pericardial effusion. Summary Statements The study was technically difficult with many images being suboptimal in quality. Left ventricular systolic function is normal. The right ventricular systolic function is grossly normal. The left atrium is mildly dilated. There is moderate mitral annular calcification. There is trace mitral regurgitation. There is mild tricuspid regurgitation. Fibrocalcific aortic valve without significant stenosis. Mildly dilated ascending aorta. There is no pericardial effusion. MD Derrick Du 09/13/2019, 4:02 PM Ordering Physician: Zo Sánchez Referring Physician: SHONA Performed By: Rola York
--- NOTE | 2019-09-13 16:14 | PN ---
Teaching Attending Note Name of Resident: Zo Sánchez ATTENDING PHYSICIAN STATEMENT I saw and evaluated the patient. I reviewed the resident's note and discussed the case with the resident. I agree with the resident's findings and plan as documented. SUBJECTIVE: Has pain in L lower thigh and knee, has no N/V. has no CP or SOB. he reports Whipple for his pancreatic cancer, finished chemo about a year ago. Recently had choledocolithiasis with ERCP x 2 and a ASRAH drain placement. drain bag was removed about 5 days ago, and the drain was supposed to be removed. He was placed on Abx at dc from hospital. he still has 1 week left. OBJECTIVE: NAD, awake, alert, cooperative and pleasant Lungs: CTAB CV: irreg irreg , diastolic murmur on LLSB. Abd: soft, NT, ND, RUQ SARAH drain with no bag attached. dressing removed and purulent discharge was found on the dressing and around the insertion site. no tenderness around it Ext : LLE in a stabilizer, with edema around L knee, with no erythema, nl warmth . a longitudinal wound on anterior todd with a laceration on L dorsal foot. DP 2+ and has normal feeling in L foot and can principal mechanical engineer toes and ankle RLE with no erythema on edema on thigh and leg . ASSESSMENT AND PLAN: 74 y/o man with h/o Pancreatic cancer, s/p Whipple's procedure, and chemo, also choledocolithiasis, s/p ERCP and RUQ SARAH drain placement, A fib, HTN, DM, who presented with a fall and was found to have acute L lower femoral fracture 1- L distal femoral fracture. - cont paincontrol , add oxycodone - cont immobilizer - obtain echo prior to surgery due to murmur on exam . - cont to hold Elipaubrie , patietn understands risk fro stroke while AC on hold 2- RUQ SARAH drain, with possible infection. details per patient as above. will try to obtain more info from treating MD in [facility]. probably had cholangitis and impacted stone removal was complicated . a drain was placed and patient was dc on Abx . - will give zosyn - will consult ID - case was /dw Dr. Cuellar, limited Recs at this point due to lack of info. will obtain CT of Abd without IV contrast. 3- H/o a FIB : - Cont CArdizem - hold Eliquis 4- Dm : - cont levemir and SSI - will confirm meds 5- DVT px: add Lovenox while Eliquis on hold
--- NOTE | 2019-09-13 16:35 | PN ---
Progress Note (short form) - Note Progress Note: ID CONSULT DICTATED R/O INFECTED BILE DUCT DRAINAGE CATHETER FEVER/ LEUKOCYTOSIS R/O SEPSIS SECONDARY TO INFECTED CATHETER S/P FEMUR FRACTURE S/P PANCREATECTOMY/CHOLECYSTECTOMY/SPLENECTOMY OBTAIN CULTURES CONTINUE EMPIRIC ZOSYN, STAT DOSE VANCOMYCIN
[2019-09-13] MEDS ORDERED: VANCOMYCIN 1 GRAM (PRE-DOCKED) 1,000 MG/250 ML BAG IVPB ONE (17:00)
[2019-09-13] MEDS: PIPERACILLIN/TAZOB 4.5 GM 4.5 GM in DEXTROSE 5%-WATER 100 ML IVPB SCH (17:17)
--- NOTE | 2019-09-13 17:54 | CONSULT ---
- Consultation REQUESTING PROVIDER: Leandra LUNA CONSULT REQUEST: We have been asked to surgically evaluate this patient for evaluation of percutaneous biliary drainage catheter. PCP:Merecdez Mobley HISTORY OF PRESENT ILLNESS: TREVOR who is a 74 y/o male who has a TOTAL PANCREATECTOMY pancreatic cancer and not a Whipple procedure and a cholecystectomy; he received chemotx. and is in remission a/t him; he developed ? biliary sepsis ? and had a ?PTC catheter placed and related procedures; it appears the catheter is on internal drainage now; he was admitted for a LE fx. and will undergo ORIF 09/15/19. PMHx: HLD/IDDM post surgery/pancreatic insufficiency post surgery PSHx: as above Home Medications Medication Instructions Recorded Apixaban [Eliquis] 2.5 mg PO BID 01/25/19 Cholecalciferol (Vitamin D3) 25 mcg PO DAILY 01/25/19 [Vitamin D3] Cyanocobalamin [Vitamin B12 -] 1,000 mcg PO DAILY 01/25/19 Diltiazem HCl [Diltiazem ER] 360 mg PO DAILY 01/25/19 Glyburide 5 mg PO ACDIN 01/25/19 Glyburide 10 mg PO ACBK 01/25/19 Insulin Aspart [Novolog] 40 unit SQ DAILY 09/12/19 Insulin Glargine,Hum.rec.anlog 20 unit SQ DAILY 09/12/19 [Lantus] Lisinopril [Zestril] 40 mg PO DAILY 09/12/19 Paroxetine HCl [Paxil Cr] 25 mg PO DAILY 09/12/19 Atorvastatin Calcium [Lipitor] 20 mg PO DAILY 09/13/19 Insulin Detemir [Levemir Flextouch] 16 units BID 09/13/19 Lipase/Protease/Amylase [Zenpep Dr 4 cap TID 09/13/19 10,000 Unit Capsule] Allergies Allergy/AdvReac Type Severity Reaction Status Date / Time No Known Drug Allergies Allergy Verified 09/12/19 09:45 REVIEW OF SYSTEMS: CONSTITUTIONAL: Absent: fever, chills, diaphoresis, generalized weakness, malaise, loss of appetite, weight change CARDIOVASCULAR: Absent: chest pain, syncope, palpitations, irregular heart rate, lightheadedness, peripheral edema RESPIRATORY: Absent: cough, shortness of breath, dyspnea with exertion, wheezing, stridor, hemoptysis GASTROINTESTINAL: Absent: abdominal pain, abdominal distension, nausea, vomiting, diarrhea, constipation, melena, hematochezia GENITOURINARY: Absent: dysuria, frequency, urgency, hesitancy, hematuria, flank pain, genital pain MUSCULOSKELETAL: Absent: myalgia, arthralgia, joint swelling, back pain, neck pain SKIN: Absent: rash, itching, pallor HEMATOLOGIC/IMMUNOLOGIC: Absent: easy bleeding, easy bruising, lymphadenopathy NEUROLOGIC: Absent: headache, focal weakness, paresthesias, dizziness, unsteady gait, seizure, mental status changes, bladder or bowel incontinence PSYCHIATRIC: Absent: anxiety, depression, suicidal or homicidal ideation, hallucinations. PHYSICAL EXAM: GENERAL: Awake, alert, and fully oriented, in no acute distress. HEAD: Normal with no signs of trauma. EYES: sclera anicteric, conjunctiva clear. NECK: Normal ROM, supple without lymphadenopathy, JVD, or masses. ABDOMEN: Soft, nontender, not distended, normoactive bowel sounds, no guarding, no rebound, no masses. No organomegaly. Healed midline surgical scar; PTC catheter in RUQ; mo surrounding erythema or ttp; some bilious drainage. MUSCULOSKELETAL: Normal ROM at all joints e/f LLE. No CVA tenderness. UPPER EXTREMITIES: 2+ pulses, warm, well-perfused. No cyanosis. Cap refill <2 seconds. No peripheral edema. LOWER EXTREMITIES: 2+ pulses, warm, well-perfused. No calf tenderness. No peripheral edema. NEUROLOGICAL: Normal speech, gait not observed. PSYCH: Cooperative. Good eye contact. Appropriate mood and affect. SKIN: Warm, dry, normal turgor, no rashes or lesions noted. Vital Signs Temperature 98.6 F 09/13/19 14:38 Pulse Rate 68 09/13/19 15:59 Respiratory Rate 18 09/13/19 15:59 Blood Pressure 106/61 09/13/19 15:59 O2 Sat by Pulse Oximetry (%) 96 09/13/19 09:00 Lab Results WBC 11.7 K/mm3 (4.0-10.0) H 09/13/19 07:55 RBC 4.22 M/mm3 (4.00-5.60) 09/13/19 07:55 Hgb 13.1 GM/dL (11.7-16.9) 09/13/19 07:55 Hct 40.7 % (35.4-49) 09/13/19 07:55 MCV 96.6 fl (80-96) H 09/13/19 07:55 MCHC 32.3 g/dl (32.0-35.9) 09/13/19 07:55 RDW 14.7 % (11.9-15.9) 09/13/19 07:55 Plt Count 468 K/MM3 (134-434) H 09/13/19 07:55 INR 1.18 (0.83-1.09) H 09/12/19 10:10 Sodium 138 mmol/L (136-145) 09/13/19 07:55 Potassium 4.9 mmol/L (3.5-5.1) 09/13/19 07:55 Chloride 98 mmol/L (98-107) 09/13/19 07:55 Carbon Dioxide 32 mmol/L (21-32) 09/13/19 07:55 Anion Gap 8 MMOL/L (8-16) 09/13/19 07:55 BUN 21.7 mg/dL (7-18) H 09/13/19 07:55 Creatinine 1.1 mg/dL (0.55-1.3) 09/13/19 07:55 Random Glucose 161 mg/dL (74-106) H 09/13/19 07:55 Calcium 8.8 mg/dL (8.5-10.1) 09/13/19 07:55 Blood Type B POSITIVE 09/12/19 10:10 Antibody Screen Negative 09/12/19 10:10 No pertinent imaging to review IMP: no evidence of biiary sepsis and/or acute surgical issue at this time. R PLAN: Suggest CT scan a/p and recommend aseptic catheter care and f/u after d/c w/his txing physicians at [facility] and [facility]. Adiel Cuellar MD FACS
--- NOTE | 2019-09-13 17:57 | PN ---
Physical Exam: SUBJECTIVE: Patient seen and examined bedside, in no acute distress. Is currently experiencing some pain. OBJECTIVE: Vital Signs Period Temp Pulse Resp BP Sys/Hartley Pulse Ox Last 24 Hr 97.8 F-99.3 F 68-117 16-18 99-138/57-91 96-97 GENERAL: The patient is awake, alert, and fully oriented, in no acute distress. HEAD: Normal with no signs of trauma. EYES: PERRL, extraocular movements intact, sclera anicteric, conjunctiva clear. ENT: moist mucous membranes. LUNGS: Breath sounds equal, CTA BL HEART: Irregular rate, tachy ABDOMEN: Soft, nontender, nondistended. Drain present on RUQ with surrounding purulent discharge EXTREMITIES: 2+ pulses, warm, well-perfused. L knee very edematous and tender to palpation. R leg no edema present. PSYCH: Normal mood, normal affect. SKIN: Warm, dry Laboratory Results - last 24 hr 09/12/19 09/12/19 09/13/19 10:53 21:41 06:33 WBC RBC Hgb Hct MCV MCH MCHC RDW Plt Count MPV Absolute Neuts (auto) Neutrophils % Lymphocytes % Monocytes % Eosinophils % Basophils % Nucleated RBC % Sodium Potassium Chloride Carbon Dioxide Anion Gap BUN Creatinine Est GFR (CKD-EPI)AfAm Est GFR (CKD-EPI)NonAf POC Glucometer 253 192 Random Glucose Calcium Phosphorus Magnesium Total Bilirubin AST ALT Alkaline Phosphatase Total Protein Albumin TSH COVID-19 (ARIEL) Not detected 09/13/19 09/13/19 09/13/19 07:55 07:55 11:26 WBC 11.7 H RBC 4.22 Hgb 13.1 Hct 40.7 MCV 96.6 H MCH 31.2 MCHC 32.3 RDW 14.7 Plt Count 468 H MPV 8.1 Absolute Neuts (auto) 7.3 Neutrophils % 63.1 Lymphocytes % 23.9 D Monocytes % 9.5 Eosinophils % 2.2 Basophils % 1.3 Nucleated RBC % 0 Sodium 138 Potassium 4.9 Chloride 98 Carbon Dioxide 32 Anion Gap 8 BUN 21.7 H Creatinine 1.1 Est GFR (CKD-EPI)AfAm 76.78 Est GFR (CKD-EPI)NonAf 66.24 POC Glucometer 98 Random Glucose 161 H Calcium 8.8 Phosphorus 5.4 H Magnesium 2.4 Total Bilirubin 1.0 AST 37 ALT 35 Alkaline Phosphatase 222 H Total Protein 6.9 Albumin 2.7 L TSH 0.89 COVID-19 (ARIEL) 09/13/19 16:44 WBC RBC Hgb Hct MCV MCH MCHC RDW Plt Count MPV Absolute Neuts (auto) Neutrophils % Lymphocytes % Monocytes % Eosinophils % Basophils % Nucleated RBC % Sodium Potassium Chloride Carbon Dioxide Anion Gap BUN Creatinine Est GFR (CKD-EPI)AfAm Est GFR (CKD-EPI)NonAf POC Glucometer 128 Random Glucose Calcium Phosphorus Magnesium Total Bilirubin AST ALT Alkaline Phosphatase Total Protein Albumin TSH COVID-19 (ARIEL) Active Medications Generic Name Dose Route Start Last Admin Trade Name Freq PRN Reason Stop Dose Admin Acetaminophen 500 mg 09/13/19 09:27 Tylenol - PO Q6H PRN PAIN LEVEL 1-5 Diltiazem HCl 360 mg 09/13/19 10:00 09/13/19 10:41 Cardizem Cd - PO 360 mg DAILY PATRICIA Administration Docusate Sodium 100 mg 09/12/19 22:00 09/13/19 10:13 Colace - PO 100 mg BID PATRICIA Administration Enoxaparin Sodium 40 mg 09/13/19 10:00 09/13/19 10:13 Lovenox - SQ 40 mg DAILY PATRICIA Administration Piperacillin Sod/Tazobactam 100 mls @ 200 mls/hr 09/13/19 18:00 09/13/19 17:17 Sod 4.5 gm/ Dextrose IVPB Not Given Q8H-IV PATRICIA Protocol Vancomycin HCl 1,000 mg in 250 mls @ 166.667 mls/hr 09/13/19 17:00 09/13/19 17:16 Vancomycin (Pre-Docked) IVPB 09/13/19 18:29 166.667 mls/hr ONCE ONE Administration Protocol Insulin Aspart 0 vial 09/12/19 22:00 09/13/19 16:53 Novolog Vial Sliding Scale - SQ Not Given ACHS [facility] Protocol Insulin Detemir 20 units 09/13/19 07:00 09/13/19 06:36 Levemir Vial SQ 20 units DAILY@0700 PATRICIA Administration Lisinopril 40 mg 09/13/19 10:00 09/13/19 10:14 Prinivil PO 40 mg DAILY PATRICIA Administration Morphine Sulfate 4 mg 09/12/19 17:18 09/13/19 14:55 Morphine Sulfate IVPUSH 4 mg Q4H PRN Administration PAIN LEVEL 7 - 10 Morphine Sulfate 2 mg 09/12/19 17:30 09/12/19 21:42 Morphine Sulfate IVPUSH 2 mg Q4H PRN Administration PAIN LEVEL 4 - 6 Oxycodone HCl 5 mg 09/13/19 12:57 Roxicodone - PO Q6H PRN PAIN LEVEL 6-10 Pancrelipase 1 cap 09/12/19 17:30 09/13/19 17:16 Creon 36,000 Units Capsule PO 1 cap TIDCM PATRICIA Administration ASSESSMENT/PLAN: 74M PMH of pancreatic Ca (dx in 2017, s/p Whipple and adjuvant chemotherapy), HTN, IDDM, Afib(Eliquis) BIBA to [facility] after sustaining a Ground-Level Fall, after stepping out of the shower, subsequent severe Left knee pain. Fell with his Left leg going "90degrees". Imaging notable for LLE distal femur comminuted fracture. Pt placed in splint in the ED. CTA done d/t Ortho request for CT; and ED wanted to evaluate for trauma of politeal artery d/t location of fx. LLE distal comminuted femur fracture - XR Left knee: comminuted distal femoral fracture, not involving the articular surface - NWB to LLE - Pain mgmt: morphine 2mg, 4mg PRN, Oxycodone 5mg q6hr PRN, Tylenol 500 mg q6 PRN. see pain scale - Ortho consult (Montesinos): OR - HOLD ELIQUIS RUQ biliary drain - dressing changes daily - discussed with Dr. Ellison (primary oncologist) patient has drain s/p multiple ERCP for stone obstruction. Plan was to keep in, patient was on antibiotics at home, Dr. Ellison believed possibly cipro but wasn't 100% sure off the top of his head. Will call his GI onc Dr. Gunn from [facility]. Called office/closed. Will call again tomorrow AM. - Started Zosyn - 5cc saline flushes daily as per Terra - consulted ID (Dr. Kerns) Obtain cultures from drain site continue Zosyn empirically, & stat dose of Vanc - CT abdomen to further assess drain AFib - HOLDING Eliquis for surgery this week - home Cardizem 360mg QD HTN - cw home cardizem, lisinopril IDDM - cw home lantus 20U daily - ISS FEN - no mIVF - diabetic diet DVT PPX: - SCDs Visit type - Emergency Visit Emergency Visit: Yes ED Registration Date: 09/12/19 Care time: The patient presented to the Emergency Department on the above date and was hospitalized for further evaluation of their emergent condition. - New Patient This patient is new to me today: Yes Date on this admission: 09/13/19 - Critical Care Critical Care patient: No - Discharge Referral Referred to [facility] Med P.C.: No - Medication Review Med list reviewed for High Risk Meds patients 65 and older: Yes ATTENDING PHYSICIAN STATEMENT I saw and evaluated the patient. I reviewed the resident's note and discussed the case with the resident. I agree with the resident's findings and plan as documented. SUBJECTIVE: OBJECTIVE: ASSESSMENT AND PLAN:
[2019-09-13 18:59] LABS: HEMATOCRIT 38.8 % (35.4-49); HEMOGLOBIN 12.8 GM/dL (11.7-16.9); MCH 31.9 pg (25.7-33.7); MCHC 32.9 g/dl (32.0-35.9); MEAN CELL VOLUME 96.9 fl (80-96); MEAN PLT VOLUME 8.8 fl (7.5-11.1); PLATELET COUNT 428 K/MM3 (134-434); RDW 14.7 % (11.9-15.9); WHITE BLOOD COUNT 14.1 K/mm3 (4.0-10.0)
[2019-09-13 19:15] LABS: BLOOD UREA NITROGEN 27.3 mg/dL (7-18); CALCIUM 8.6 mg/dL (8.5-10.1); CREATININE 1.2 mg/dL (0.55-1.3); MAGNESIUM 2.3 mg/dL (1.8-2.4); PHOSPHOROUS 5.3 mg/dL (2.5-4.9); POTASSIUM 4.8 mmol/L (3.5-5.1)
[2019-09-13] MEDS: ACETAMINOPHEN 500 MG TABLET (FP) PO PRN (21:15)
--- NOTE | 2019-09-13 22:40 | CONS ---
DATE OF CONSULTATION: DATE OF DICTATION: 09/13/2019 INFECTIOUS DISEASE CONSULTATION HISTORY OF PRESENT ILLNESS: The patient is a 74-year-old male with a history of pancreatic cancer status post pancreatectomy, cholecystectomy, splenectomy in 2017. Now evaluated for purulent drainage from a bile duct catheter. The patient was seen in the presence of his significant other, who is a nurse and provided additional details. He had apparently developed choledocholithiasis approximately 2 weeks ago and reports 2 ERCPs. He states that the stone was extracted. However, a biliary drainage catheter was left in situ. The plan was to maintain the catheter for 2 weeks and remove it. It was scheduled to be removed; however, in the interim the patient had a mechanical fall resulting in a fracture of his left femur. He is now admitted for this fracture and is scheduled for surgery. Surgery is postponed due to patient being on blood thinner. At the present time, he is awake. He has no complaints of abdominal pain. There were reports of purulent drainage coming from the orifice of the drainage catheter. There is no bag attached to the catheter, it was closed. He denied any associated fever or chills. His hospital course has now been complicated by low-grade fever and elevated white blood cell count. PAST MEDICAL HISTORY: Positive for pancreatic cancer 2017, insulin dependent diabetes mellitus, atrial fibrillation, hypertension. PAST SURGICAL HISTORY: Status post pancreatectomy, cholecystectomy, splenectomy. ALLERGIES: No known allergies. MEDICATION: Include: 1. Zosyn. 2. Lovenox. 3. Diltiazem. 4. Lisinopril. 5. Morphine. 6. Oxycodone. 7. Colace. 8. Insulin. SOCIAL HISTORY: Resides in the community with his significant other. He is a nonsmoker, occasional ETOH. SYSTEMS REVIEW: Neurologic: No loss of consciousness, seizure activity, focal weakness. Cardiac: Negative for chest pain or palpitations. Respiratory: Negative for cough or sputum production. Gastrointestinal: As per HPI. Genitourinary: Negative for urinary tract infection. LABORATORY DATA: White count 11.7, 63 neutrophils, 23 lymphocytes, 9 monocytes. Hematocrit 40.7, platelet count 468. Creatinine 1.1. Total bilirubin 1.0. Alkaline phosphatase 222. AST 37. X-ray shows a comminuted distal left femoral fracture. PHYSICAL EXAMINATION: General: On exam, he is awake and alert, in bed, in moderate distress when moved secondary to leg pain. Vital signs: Temperature 98.6, blood pressure 106/61, pulse 68 regular, respirations 18 per minute. HEENT: Sclerae anicteric. Cardiovascular: Heart sounds S1, S2. Lungs: Clear. Abdomen: Soft. There is mild tenderness present in the right upper quadrant. There is a biliary drainage catheter present in the right upper quadrant. The site has recently been clean, there is no purulence noted at this time. Extremities: Negative for edema. There is a superficial abrasion present on the dorsal aspect of the left foot. IMPRESSION: 1. Rule out infected bile duct drainage catheter. 2. Fever/leukocytosis, rule out sepsis secondary to infected catheter. 3. Status post left femur fracture. 4. Pancreatic cancer status post pancreatectomy, cholecystectomy, splenectomy. Obtain blood and wound cultures. Not clear whether catheter became infected from internally or externally. Agree with empiric Zosyn. Will give stat dose vancomycin pending cultures. Patient is susceptible to bacterial infection in light of his splenectomy. Case discussed with his significant other present at the time of the examination. Thank you for the kind referral. JOSE DE JESUS ANGELES M.D. [id number]
[2019-09-14] MEDS ORDERED: DEXTROSE 5%-WATER 100 ML IVPB ONE ×3 (01:35→16:41)
[2019-09-14] MEDS ORDERED: PIPERACILLIN/TAZOBACTAM 4.5 GM VIAL IVPB ONE ×3 (01:35→16:41)
[2019-09-14] MEDS: PIPERACILLIN/TAZOB 4.5 GM 4.5 GM in DEXTROSE 5%-WATER 100 ML IVPB SCH ×3 (01:37→17:15)
[2019-09-14] MEDS: INSULIN SLIDING SCALE (NOVOLOG) 1 VIAL SQ SCH ×3 (06:37→17:15)
[2019-09-14] MEDS: INSULIN (LEVEMIR) 100 UNITS/ML UNITS SQ SCH (06:39)
[2019-09-14] MEDS: MORPHINE SULFATE 2 MG/ML VIAL IVPUSH PRN ×3 (06:41→15:37)
[2019-09-14 08:35] LABS: HEMATOCRIT 36.6 % (35.4-49); MCH 31.9 pg (25.7-33.7); MCHC 32.9 g/dl (32.0-35.9); MEAN PLT VOLUME 8.4 fl (7.5-11.1); PLATELET COUNT 396 K/MM3 (134-434); RBC 3.78 M/mm3 (4.00-5.60); RDW 14.6 % (11.9-15.9)
[2019-09-14 09:09] LABS: BLOOD UREA NITROGEN 25.6 mg/dL (7-18); CALCIUM 8.5 mg/dL (8.5-10.1); MAGNESIUM 2.4 mg/dL (1.8-2.4); PHOSPHOROUS 4.3 mg/dL (2.5-4.9); POTASSIUM 4.7 mmol/L (3.5-5.1)
[2019-09-14] MEDS: LIPASE/PROTEASE/AMYLASE 36,000 UNIT CAPSULE PO SCH ×3 (09:54→17:19)
[2019-09-14] MEDS: oxyCODONE HCL 5 MG TABLET PO PRN ×2 (09:55→17:18)
[2019-09-14] MEDS: DOCUSATE SODIUM 100 MG CAPSULE (FP) PO SCH (09:56)
[2019-09-14] MEDS: ENOXAPARIN NA (PORCINE) 40 MG/0.4 ML DISP.SYRIN SQ SCH (09:56)
[2019-09-14] MEDS: LISINOPRIL 20 MG TABLET (FP) PO SCH (09:56)
[2019-09-14] MEDS ORDERED: MUPIROCIN 2% TOPICAL OINTMENT 22 GM TUBE TP SCH (10:15)
[2019-09-14] MEDS ORDERED: POLYETHYLENE GLYCOL 3350 119 GM BTL PO ONE (10:16)
[2019-09-14] MEDS ORDERED: SENNOSIDES 8.6MG TABLET (FP) PO SCH (10:30)
[2019-09-14] MEDS ORDERED: INSULIN (NOVOLOG) ASPART 100 UNITS/ML 10ML VIAL ONE ×2 (11:22→16:41)
[2019-09-14 13:42] VITALS: BP 128/70; PULSE 90; TEMP 99.7
[2019-09-14] MEDS: ACETAMINOPHEN 500 MG TABLET (FP) PO PRN (14:30)
--- NOTE | 2019-09-14 15:56 | PN ---
Teaching Attending Note Name of Resident: An Cummins ATTENDING PHYSICIAN STATEMENT I saw and evaluated the patient. I reviewed the resident's note and discussed the case with the resident. I agree with the resident's findings and plan as documented. SUBJECTIVE: No fever or chills . has painin L knee. no N/V . no SOB . or cp OBJECTIVE: NAD, awake, alert Lungs: CTAB CV: irreg irreg , 2/6 diastolic murmur on LLSB. Abd: soft, NT, ND, RUQ SARAH drain with no bag attached. purulent drainage is noted again with no surrounding skin changes Ext : LLE in a stabilizer, with improved edema around L knee, with no erythema, nl warmth . edema in thigh and leg ( minimal ) . a longitudinal wound on anterior todd with a scab and a laceration on L dorsal foot. DP 2+ and has normal feeling in L foot and can change analyst toes and ankle RLE with no erythema on edema on thigh and leg . ASSESSMENT AND PLAN: 74 y/o man with h/o Pancreatic cancer, s/p Whipple's procedure, and chemo, also choledocolithiasis, s/p ERCP and RUQ SARAH drain placement, A fib, HTN, DM, who presented with a fall and was found to have acute L lower femoral fracture 1- L distal femoral fracture. - dr. england discussed with team. replacement of the distal femor is recommended and for this he has to be transferred to [facility] - will arrange for transfer . awaiting a word form ortho resident in [facility] - [facility] to hold Eliquis - cont oxy and morphine - cont immobilizer - Echo reviewed. minimal MR, TR, with no significant major findings . 2- Infected RUQ SARAH drain. team was unable to reach the surgeon at [facility]. - cont zosyn - blood and wound cx pending - upon transfer to [facility], drainage removal/management will be discussed with his doctors 3- H/o A fib: - Cont CArdizem - hold Eliquis 4- Dm : - cont levemir and SSI - meds still need to be confirmed . Not sure if he is on glyburide with Insulin 5- DVT px: Lovenox while Eliquis on hold Plan fro transfer to [facility]. awaiting acceptance and arrangements
--- NOTE | 2019-09-14 17:58 | PN ---
Progress Note (short form) - Note Progress Note: Pt lying comf in bed. Vital Signs - 24 hr 09/13/19 09/13/19 09/13/19 19:36 21:00 22:15 Temperature 99.0 F 98.6 F Pulse Rate 67 88 Respiratory 18 18 18 Rate Blood Pressure 107/50 L 129/62 O2 Sat by Pulse 96 96 Oximetry (%) 09/14/19 09/14/19 09/14/19 04:00 09:00 10:00 Temperature 98.6 F Pulse Rate 77 81 Respiratory 18 Rate Blood Pressure 105/56 L 103/57 L O2 Sat by Pulse 96 96 Oximetry (%) 09/14/19 13:40 Temperature 99.7 F H Pulse Rate 90 Respiratory 18 Rate Blood Pressure 128/70 O2 Sat by Pulse Oximetry (%) LLE moderate swelling compts soft tender knee calves soft NT ehl fhl ta g s intact sens int to lt 2+ dp A: L distal femoral fracture P: I had a lengthy discussion with Ilia and his girlfriend over the phone this morning. Initially, I plan had been to fixate the fracture. Upon further consideration we discussed the option of distal femoral replacement. While this operation has less longevity then ORIF, his prognosis for his cancer may make this less of a factor. Distal femoral replacement will provide earlier ambulation and eliminate the need for healing of the highly comminuted fracture which will take many months. There is a chance if he does live longer that the prosthesis could loosen but this could be addressed with another surgery. After reviewing the risks, benefits and alternatives of each option, he has decided to proceed with distal femoral placement. We are unable to provide this procedure at [facility]. After review, [facility] would [facility]. I spoke with the medical team and reviewed this update. He should remain on DVT prophylaxis while present in the hospital. He is to remain strictly nonweightbearing. Problem List - Problems (1) Closed displaced supracondylar fracture of distal end of left femur with intracondylar extension Code(s): S72.462A - DISPL SUPRCNDL FX W INTRCNDL EXTN LOWER END OF L FEMUR, INIT Qualifiers: Encounter type: initial encounter Qualified Code(s): S72.462A - Displaced supracondylar fracture with intracondylar extension of lower end of left femur, initial encounter for closed fracture
--- NOTE | 2019-09-14 19:01 | DS ---
Physical Exam: SUBJECTIVE: Patient seen and examined in no acute distress. His pain better controlled today with extra medication. OBJECTIVE: Vital Signs Period Temp Pulse Resp BP Sys/Hartley Pulse Ox Last 24 Hr 98.6 F-99.7 F 67-90 18-18 103-129/50-70 96-96 PHYSICAL EXAM GENERAL: The patient is awake, alert, and fully oriented, in no acute distress. HEAD: Normal with no signs of trauma. EYES: PERRL, extraocular movements intact, sclera anicteric, conjunctiva clear. ENT: moist mucous membranes. LUNGS: Breath sounds equal, CTA BL HEART: Irregular rate, tachy ABDOMEN: Soft, nontender, nondistended. Drain present on RUQ with surrounding green discharge, less than yesterday. EXTREMITIES: 2+ pulses, warm, well-perfused. L knee very warm and edematous, but improved since yesterday. PSYCH: Normal mood, normal affect. SKIN: Warm, dry LABS Laboratory Results - last 24 hr 09/13/19 09/13/19 09/13/19 18:30 18:30 21:11 WBC 14.1 H RBC 4.00 Hgb 12.8 Hct 38.8 MCV 96.9 H MCH 31.9 MCHC 32.9 RDW 14.7 Plt Count 428 MPV 8.8 Sodium 135 L Potassium 4.8 Chloride 95 L Carbon Dioxide 29 Anion Gap 11 BUN 27.3 H Creatinine 1.2 Est GFR (CKD-EPI)AfAm 69.11 Est GFR (CKD-EPI)NonAf 59.63 POC Glucometer 224 Random Glucose 150 H Calcium 8.6 Phosphorus 5.3 H Magnesium 2.3 09/14/19 09/14/19 09/14/19 06:31 08:25 08:25 WBC 13.0 H RBC 3.78 L Hgb 12.0 Hct 36.6 MCV 97.0 H MCH 31.9 MCHC 32.9 RDW 14.6 Plt Count 396 MPV 8.4 Sodium 131 L Potassium 4.7 Chloride 93 L Carbon Dioxide 31 Anion Gap 7 L BUN 25.6 H Creatinine 1.0 Est GFR (CKD-EPI)AfAm 86.15 Est GFR (CKD-EPI)NonAf 74.34 POC Glucometer 140 Random Glucose 263 H Calcium 8.5 Phosphorus 4.3 Magnesium 2.4 09/14/19 09/14/19 11:08 16:30 WBC RBC Hgb Hct MCV MCH MCHC RDW Plt Count MPV Sodium Potassium Chloride Carbon Dioxide Anion Gap BUN Creatinine Est GFR (CKD-EPI)AfAm Est GFR (CKD-EPI)NonAf POC Glucometer 299 304 Random Glucose Calcium Phosphorus Magnesium IMAGING: ORIF is identified of a tibial plateau fracture. An acute fracture of the distal femur is identified extending between both condyles. This fracture is noted to be comminuted. It is rotated and displaced. There is edema in the region no active extravasation of contrast media was identified . Blood is identified with layering within the joint space. The hip joint spaces are preserved. There is demineralization. Spondylotic changes are noted of the spine HOSPITAL COURSE: Patient was admitted s/p fall from the shower. Imaging showed a comminuted distal femur fracture. Patient was advised by orthopedics at [facility] that a distal femur replacement would be best given his history, because it will provide earlier ambulation and eliminate the need for healing of the highly comminuted fracture which will take many months. Patient came to the hospital with an exiting drain placed by Dr. Gunn due to multiple ERCP procedures for a stone blockage. Please have the patient assessed by Dr. Gunn for his biliary drain. Please continue antibiotic prophylaxis for his drain (We were giving him zosyn Q8) Cultures from the patient's wound were taken today. Please follow up on the results. Date of Admission:09/12/19 Date of Discharge: 09/14/19 Minutes to complete discharge: 40 Discharge Summary Problems reviewed: Yes Reason For Visit: PATHOLOGICAL FRACTURE FRACTURE OF DISTAL END OF FE Current Active Problems Closed displaced supracondylar fracture of distal end of left femur with intracondylar extension (Acute) Infection of cholecystostomy drain (Acute) Condition: Stable - Instructions Diet, Activity, Other Instructions: Visit: You came to the ED after you fell. You had imaging with showed a distal femur fracture of your leg. After discussing with our orthopedic physician Dr. Montesinos, you both decided it would be best to be transferred to a hospital for a distal femur replacement. You are being transferred to [facility] under the care of Dr. Garcia. We encourage you to ask your team to speak to Dr. Gunn while you are at [facility] to discuss your biliary drain. These are the medications we had you on in the hospital. ( can be continued at [facility] ) Cardizem 360 daily Colace 100 mg twice a day Levemir 20 units in the AM Novolog Sliding Scale Lisinopril 40 mg daily Senna 1 tab BID IV Zosyn 4.5 grams every 8 hours oxycodone 5 mg q 6 hrs as needed paxil 25 mg daily lipitor 20 mg daily Creon daily IV Morphine 2mg every 4 hours as needed IV Morphine 4 mg every 4 hours as needed (we held eliquis before your surgery ) , it needs to be resumed after surgery Your Medication at home: You have many different insulins and diabetic medicat ions. We are concerned for the risk of hypoglycemia. 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 Home medications prior to admission : Glyburide 10 mg PO / 5 mg PO Vitamin D3 25 mcg PO DAILY Lisinopril [Zestril] 40 mg PO DAILY Apixaban [Eliquis] 2.5 mg PO BID Cyanocobalamin [Vitamin B12 -] 1,000 mcg PO DAILY Diltiazem HCl [Diltiazem ER] 360 mg PO DAILY Paroxetine HCl [Paxil] 25 mg PO DAILY Insulin Aspart [Novolog] Sliding Scale Insulin Glargine,Hum.rec.anlog20 unit SQ DAILY Lipase/ Protease/ Amylase ( Zempep) Lipitor 20 mg daily We would recommend stopping the Glyburide because of it's risk of hypoglycemia. We would also recommend using your Levemir and Sliding scale novolog. 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 Follow up with you GIDr. Gunn about your drain. Referrals: Adiel Montesinos MD [Staff Physician] - Shaan Becerra MD [Primary Care Provider] - Disposition: TRANSFER ACUTE CARE/OTHER HOSP - Home Medications Comprehensive Discharge Medication List: Ambulatory Orders Apixaban [Eliquis] 2.5 mg PO BID 01/25/19 Cholecalciferol (Vitamin D3) [Vitamin D3] 25 mcg PO DAILY 01/25/19 Cyanocobalamin [Vitamin B12 -] 1,000 mcg PO DAILY 01/25/19 Diltiazem HCl [Diltiazem ER] 360 mg PO DAILY 12/03/19 Glyburide 5 mg PO ACDIN 01/25/19 Glyburide 10 mg PO ACBK 01/25/19 Insulin Aspart [Novolog] See Protocol SQ DAILY 09/12/19 Insulin Glargine,Hum.rec.anlog [Lantus] 20 unit SQ DAILY 09/12/19 Lisinopril [Zestril] 40 mg PO DAILY 09/12/19 Paroxetine HCl [Paxil Cr] 25 mg PO DAILY 09/12/19 Atorvastatin Calcium [Lipitor] 20 mg PO DAILY 09/13/19 Insulin Detemir [Levemir Flextouch] See Protocol BID 09/13/19 Lipase/Protease/Amylase [Zenpep Dr 10,000 Unit Capsule] 4 cap TID 09/13/19 This patient is new to me today: No Emergency Visit: Yes ED Registration Date: 09/12/19 Care time: The patient presented to the Emergency Department on the above date and was hospitalized for further evaluation of their emergent condition. Critical Care patient: No - Discharge Referral Referred to [facility] Med P.C.: No ATTENDING PHYSICIAN STATEMENT I saw and evaluated the patient. I reviewed the resident's note and discussed the case with the resident. I agree with the resident's findings and plan as documented. SUBJECTIVE: OBJECTIVE: ASSESSMENT AND PLAN:
[2019-09-14] MEDS ORDERED: ATORVASTATIN CA 20 MG TABLET (FP) PO SCH (22:00)
[2019-09-15] MEDS ORDERED: PARoxetine HCL 10 MG TABLET PO SCH (10:00)
== END 2019-09-14 21:54 | disposition short-term general hospital (02) | DRG 534 ==
LOC: JER 09:41 → JERBED 16:43 → J6S 20:56
PROVIDERS: ADMIT Internal Medicine; ATTEND Internal Medicine
DX: S72.462A Displaced supracondylar fracture with intracondylar extension of lower end of left femur, initial encounter for closed fracture (principal); T85.79XA Infection and inflammatory reaction due to other internal prosthetic devices, implants and grafts, initial encounter; I10 Essential (primary) hypertension; I48.91 Unspecified atrial fibrillation; E11.9 Type 2 diabetes mellitus without complications; Z79.4 Long term (current) use of insulin; Z79.01 Long term (current) use of anticoagulants; W19.XXXA Unspecified fall, initial encounter; Y93.89 Activity, other specified; Y92.002 Bathroom of unspecified non-institutional (private) residence as the place of occurrence of the external cause; Y99.8 Other external cause status; Y83.8 Other surgical procedures as the cause of abnormal reaction of the patient, or of later complication, without mention of misadventure at the time of the procedure; Z85.07 Personal history of malignant neoplasm of pancreas
CPT/HCPCS: 36415; 70450-TC; 71045-TC-FY; 72125-TC; 73523-TC-FY; 73552-TC-LT-FY; 73560-TC-LT-FY; 73590-TC-LT-FY; 74150-TC; 75635-TC; 80048; 80053; 82962; 83735; 84100; 84443; 85025; 85027; 85610; 85730; 86850; 86900; 86901; 87040; 87070; 87205; 93005; 93010; 93306-TC; 97161-GP; 99291; 99292; Q9967; U0003

== ENCOUNTER 2020-10-28 04:15 | Inpatient (IN) | payer OTHER, BC ==
[2020-10-28] MEDS ORDERED: SODIUM CHLORIDE 0.9% 500 ML INFUS.BAG IV ONE (04:32)
[2020-10-28 04:39] LABS: VENOUS BASE EXCESS -15.2 mmol/L (-2-2); VENOUS O2 SATURATION 41.7 % (70-80); VENOUS PCO2 23.6 mmHg (38-52); VENOUS PH 7.254 (7.310-7.410)
[2020-10-28 04:57] LABS: INR 0.96 (0.83-1.09); PROTHROMBIN TIME (PATIENT) 11.8 SEC (9.7-13.0)
[2020-10-28 05:00] LABS: ACTIVATED PTT 26.8 SECONDS (25.2-36.5)
[2020-10-28 05:03] LABS: BASO % 0.3 % (0-2.0); HEMATOCRIT 34.4 % (35.4-49); HEMOGLOBIN 10.7 GM/dL (11.7-16.9); MCH 30.8 pg (25.7-33.7); MCHC 31.2 g/dl (32.0-35.9); MEAN CELL VOLUME 98.7 fl (80-96); MEAN PLT VOLUME 11.2 fl (7.5-11.1); MONO % 0.6 % (3.8-10.2); NEUT % 95.1 % (42.8-82.8); PLATELET COUNT 274 10^3/uL (134-434); RBC 3.49 M/mm3 (4.00-5.60); RDW 18.4 % (11.9-15.9); WHITE BLOOD COUNT 11.1 K/mm3 (4.0-10.0)
[2020-10-28 05:09] LABS: CHLORIDE 85 mmol/L (98-107); SODIUM 124 mmol/L (136-145)
[2020-10-28 05:11] LABS: ALBUMIN 2.6 g/dl (3.4-5.0); BLOOD UREA NITROGEN 53.2 mg/dL (7-18); CALCIUM 7.6 mg/dL (8.5-10.1); CO2 11 mmol/L (21-32); MAGNESIUM 2.6 mg/dL (1.8-2.4)
[2020-10-28 05:14] LABS: SGPT/ALT 44 U/L (13-61)
[2020-10-28 05:15] LABS: CREATININE 2.5 mg/dL (0.55-1.3); PHOSPHOROUS 7.5 mg/dL (2.5-4.9); SGOT/AST 27 U/L (15-37)
[2020-10-28 05:16] LABS: BILIRUBIN,TOTAL 0.9 mg/dL (0.2-1); TOT PROT 5.3 g/dl (6.4-8.2)
[2020-10-28 05:17] LABS: ALK PHOS 98 U/L (45-117)
[2020-10-28 05:20] LABS: N-TERMINAL BNP 6637.4 pg/ml (5-125)
[2020-10-28 05:39] LABS: ANION GAP 28 MMOL/L (8-16)
[2020-10-28] MEDS ORDERED: CALCIUM GLUCONATE 10% - 1,000 MG/10 ML VIAL IVPUSH ONE (05:39)
[2020-10-28] MEDS ORDERED: INSULIN REGULAR HUMAN 100 UNITS/ML *VIAL* (FOR IVP) IVPUSH ONE (05:40)
[2020-10-28 05:45] LABS: GLUCOSE,RANDOM 784 mg/dL (74-106)
[2020-10-28] MEDS ORDERED: CALCIUM GLUCONATE 10% - 1,000 MG/10 ML VIAL ONE (05:45)
[2020-10-28] MEDS ORDERED: INSULIN REGULAR 100 UNITS in SODIUM CHLORIDE 99 ML IVPB SCH (05:45)
[2020-10-28] MEDS ORDERED: SODIUM CHLORIDE 0.9% 1000 ML INFUS.BAG IV ONE ×2 (06:15→06:16)
[2020-10-28] MEDS ORDERED: SODIUM CHLORIDE 1,000 ML IV SCH (06:30)
[2020-10-28 08:15] LABS: URINE APPEARANCE CLEAR; URINE BILIRUBIN NEGATIVE (NEGATIVE); URINE COLOR YELLOW; URINE GLUCOSE (UA) 3+ (NEGATIVE); URINE KETONE 1+ (NEGATIVE); URINE LEUK ESTERASE NEGATIVE (NEGATIVE); URINE NITRITE NEGATIVE (NEGATIVE); URINE PROTEIN NEGATIVE (NEGATIVE); URINE UROBILINOGEN 0.2 mg/dL (0.2-1.0)
[2020-10-28] MEDS ORDERED: NOREPINEPHRINE BITARTRATE 4 MG/4 ML ML IV ONE (08:15)
[2020-10-28] MEDS: NOREPINEPHRINE NS PREMIX 8,000 MCG/500 ML BAG IVPB SCH (08:38)
[2020-10-28 08:39] LABS: ANISOCYTOSIS 0; HELMET CELLS 0; HOWELL-JOLLY BODIES 0; MACROCYTOSIS 0; OVALOCYTE 0; PLATELET ESTIMATE NORMAL; ROULEAU 0; SICKELED CELLS 0; TARGET CELLS 0; TEAR DROP CELLS 0; TOXIC GRANULATION 0
[2020-10-28] MEDS ORDERED: HEPARIN NA (PORCINE) 5,000 UNITS/ML 1ML VIAL ONE (08:54)
[2020-10-28] MEDS: HEPARIN NA (PORCINE) 5,000 UNITS/ML 1ML VIAL SQ SCH ×3 (09:01→22:12)
[2020-10-28 09:25] LABS: CHLORIDE 95 mmol/L (98-107); SODIUM 131 mmol/L (136-145)
[2020-10-28 09:27] LABS: ANION GAP 25 MMOL/L (8-16); BLOOD UREA NITROGEN 50.2 mg/dL (7-18); CALCIUM 7.2 mg/dL (8.5-10.1); CO2 11 mmol/L (21-32)
[2020-10-28 09:31] LABS: CREATININE 2.6 mg/dL (0.55-1.3); GLUCOSE,RANDOM 472 mg/dL (74-106)
[2020-10-28 09:58] LABS: LACTIC ACID 8.7 mmol/L (0.4-2.0)
[2020-10-28] MEDS ORDERED: LACTATED RINGERS SOLUTION 1,000 ML/1,000 ML INFUS.BAG IV STA ×4 (10:08→14:41)
[2020-10-28] MEDS: MUPIROCIN 2% TOPICAL OINTMENT FOR DECOLONIZATION NS SCH ×2 (11:46→22:12)
[2020-10-28] MEDS ORDERED: D5-NS + 20 MEQ KCL - 20 MEQ/1,000 ML INFUS.BAG IV SCH (15:15)
[2020-10-28 15:33] LABS: BLOOD UREA NITROGEN 47.5 mg/dL (7-18); CALCIUM 7.3 mg/dL (8.5-10.1); MAGNESIUM 2.5 mg/dL (1.8-2.4)
[2020-10-28 15:37] LABS: CREATININE 2.1 mg/dL (0.55-1.3); PHOSPHOROUS 3.6 mg/dL (2.5-4.9)
[2020-10-28 16:01] LABS: LACTIC ACID 5.6 mmol/L (0.4-2.0)
[2020-10-28] MEDS ORDERED: PORTA CATH FLUSH 10 ML IVPUSH ONE (16:42)
[2020-10-28] MEDS ORDERED: LORazepam 2 MG/ML SDV VIAL IVPUSH STA (16:52)
[2020-10-28 19:07] LABS: ARTERIAL BLOOD GAS BASE EXCESS -3.2 mmol/L (-2-2); ARTERIAL BLOOD GAS PO2 105.9 mmHg (80-100); ARTERIAL BLOOD GAS pH 7.426 (7.350-7.450)
[2020-10-28 19:09] LABS: ALLENS TEST POSITIVE
[2020-10-28] MEDS: CHLORHEXIDINE GLUCONATE 4% CLEANSER FOR DECOLONIZATION TP SCH (22:12)
[2020-10-28] MEDS ORDERED: INSULIN (LEVEMIR) 100 UNITS/ML UNITS SQ SCH (23:00)
[2020-10-28] MEDS ORDERED: INSULIN (LEVEMIR) 100 UNITS/ML UNITS SQ ONE (23:12)
[2020-10-28] MEDS ORDERED: MAGNESIUM SULF 50% (8.12 MEQ/2 ML-1 GM VIAL) IVPB ONE (23:21)
[2020-10-29] LABS: BLOOD UREA NITROGEN 41.9 mg/dL (7-18); CALCIUM 7.1 mg/dL (8.5-10.1)
[2020-10-29 00:03] LABS: CREATININE 1.3 mg/dL (0.55-1.3)
[2020-10-29] MEDS ORDERED: DEXTROSE 5%-0.45% SALINE 1,000 ML IV SCH (04:00)
[2020-10-29 06:40] LABS: HEMATOCRIT 30.8 % (35.4-49); HEMOGLOBIN 10.6 GM/dL (11.7-16.9); MCH 31.4 pg (25.7-33.7); MCHC 34.5 g/dl (32.0-35.9); MEAN CELL VOLUME 91.3 fl (80-96); MEAN PLT VOLUME 9.9 fl (7.5-11.1); PLATELET COUNT 186 10^3/uL (134-434); RBC 3.38 M/mm3 (4.00-5.60); RDW 17.7 % (11.9-15.9); WHITE BLOOD COUNT 9.2 K/mm3 (4.0-10.0)
[2020-10-29 06:55] LABS: CALCIUM 7.2 mg/dL (8.5-10.1)
[2020-10-29 06:59] LABS: BLOOD UREA NITROGEN 33.8 mg/dL (7-18); MAGNESIUM 2.4 mg/dL (1.8-2.4)
[2020-10-29] MEDS ORDERED: INSULIN SLIDING SCALE (NOVOLOG) 1 VIAL SQ SCH (07:00)
[2020-10-29 07:01] LABS: CREATININE 0.9 mg/dL (0.55-1.3)
[2020-10-29 07:02] LABS: PHOSPHOROUS 1.9 mg/dL (2.5-4.9)
[2020-10-29] MEDS: INSULIN SLIDING SCALE (NOVOLOG) 1 VIAL SQ SCH ×4 (07:49→22:53)
[2020-10-29] MEDS: HEPARIN NA (PORCINE) 5,000 UNITS/ML 1ML VIAL SQ SCH (07:49)
[2020-10-29] MEDS: SODIUM CHLORIDE 1,000 ML IV SCH (08:30)
[2020-10-29] MEDS: MUPIROCIN 2% TOPICAL OINTMENT FOR DECOLONIZATION NS SCH ×2 (10:00→22:53)
[2020-10-29] MEDS ORDERED: INSULIN (LEVEMIR) 100 UNITS/ML UNITS SQ ONE (10:00)
[2020-10-29] MEDS: NOREPINEPHRINE NS PREMIX 8,000 MCG/500 ML BAG IVPB SCH (11:46)
[2020-10-29] MEDS ORDERED: NAPH,MB-DB/K PH,MBDB POWDER PACKET PO ONE ×2 (15:48→17:30)
[2020-10-29] MEDS ORDERED: PT OWN MED DRAWER 7, Y5N ONE ×2 (17:22→20:58)
[2020-10-29] MEDS: CHOLESTYRAMINE/ASPARTAME 4 GM PACKET PO SCH (17:51)
[2020-10-29] MEDS ORDERED: LIPASE PO SCH (22:00)
[2020-10-29] MEDS ORDERED: PROTEASE PO SCH (22:00)
[2020-10-29] MEDS ORDERED: [UNRECOGNIZED DRUG - OTHER] PO SCH (22:00)
[2020-10-29] MEDS ORDERED: INSULIN (LEVEMIR) 100 UNITS/ML UNITS SQ SCH (22:00)
[2020-10-29] MEDS ORDERED: AMYLASE PO SCH (22:00)
[2020-10-29] MEDS: ATORVASTATIN CA 20 MG TABLET (FP) PO SCH (22:53)
[2020-10-29] MEDS: CHLORHEXIDINE GLUCONATE 4% CLEANSER FOR DECOLONIZATION TP SCH (22:53)
[2020-10-29] MEDS: APIXABAN 2.5 MG TABLET PO SCH (22:53)
[2020-10-30] MEDS: INSULIN (LEVEMIR) 100 UNITS/ML UNITS SQ SCH ×3 (00:01→22:35)
[2020-10-30 07:16] LABS: HEMATOCRIT 31.5 % (35.4-49); HEMOGLOBIN 10.8 GM/dL (11.7-16.9); MCH 31.2 pg (25.7-33.7); MCHC 34.2 g/dl (32.0-35.9); MEAN CELL VOLUME 91.1 fl (80-96); MEAN PLT VOLUME 9.6 fl (7.5-11.1); PLATELET COUNT 116 10^3/uL (134-434); RBC 3.46 M/mm3 (4.00-5.60); RDW 17.9 % (11.9-15.9)
[2020-10-30 07:22] LABS: CHLORIDE 103 mmol/L (98-107); SODIUM 136 mmol/L (136-145)
[2020-10-30 07:27] LABS: ANION GAP 5 MMOL/L (8-16); BLOOD UREA NITROGEN 13.7 mg/dL (7-18); CO2 28 mmol/L (21-32); GLUCOSE,RANDOM 178 mg/dL (74-106)
[2020-10-30] MEDS: INSULIN SLIDING SCALE (NOVOLOG) 1 VIAL SQ SCH ×4 (07:29→22:35)
[2020-10-30 07:30] LABS: CREATININE 0.5 mg/dL (0.55-1.3); PHOSPHOROUS 1.6 mg/dL (2.5-4.9)
[2020-10-30] MEDS ORDERED: PT OWN MED DRAWER 7, Y5N ONE ×2 (08:41→22:30)
[2020-10-30 08:42] LABS: CALCIUM 6.8 mg/dL (8.5-10.1)
[2020-10-30] MEDS: CHOLESTYRAMINE/ASPARTAME 4 GM PACKET PO SCH ×2 (08:42→17:59)
[2020-10-30] MEDS ORDERED: SODIUM PHOSPHATE - 30 MM in SODIUM CHLORIDE 250 ML IVPB ONE (09:00)
[2020-10-30] MEDS: MUPIROCIN 2% TOPICAL OINTMENT FOR DECOLONIZATION NS SCH ×2 (09:49→22:37)
[2020-10-30] MEDS: PARoxetine HCL 20 MG TABLET PO SCH (09:50)
[2020-10-30] MEDS: APIXABAN 2.5 MG TABLET PO SCH ×2 (09:50→22:34)
[2020-10-30] MEDS ORDERED: LISINOPRIL 20 MG TABLET PO SCH (10:00)
[2020-10-30] MEDS: NOREPINEPHRINE NS PREMIX 8,000 MCG/500 ML BAG IVPB SCH (12:42)
[2020-10-30] MEDS ORDERED: CALCIUM GLUC IN NACL, ISO-OSM 1 GM/50 ML BAG IVPB ONE (12:45)
[2020-10-30] MEDS ORDERED: SODIUM PHOSPHATE - 30 MM in DEXTROSE 5%-WATER - 250 ML IVPB ONE (13:00)
[2020-10-30] MEDS: SODIUM CHLORIDE 1,000 ML IV SCH (14:00)
[2020-10-30] MEDS ORDERED: SODIUM CHLORIDE 0.9% 500 ML INFUS.BAG IV ONE (14:15)
[2020-10-30] MEDS ORDERED: SODIUM CHLORIDE 250 ML IV STA (15:30)
[2020-10-30] MEDS ORDERED: SODIUM CHLORIDE 500 ML IV STA (15:30)
[2020-10-30] MEDS ORDERED: ACETAMINOPHEN 325 MG TABLET (FP) PO ONE (20:56)
[2020-10-30] MEDS: ATORVASTATIN CA 20 MG TABLET (FP) PO SCH (22:34)
[2020-10-30] MEDS: CHLORHEXIDINE GLUCONATE 4% CLEANSER FOR DECOLONIZATION TP SCH (22:35)
[2020-10-31] MEDS: INSULIN (LEVEMIR) 100 UNITS/ML UNITS SQ SCH ×2 (06:45→21:27)
[2020-10-31] MEDS: INSULIN SLIDING SCALE (NOVOLOG) 1 VIAL SQ SCH ×4 (06:46→21:27)
[2020-10-31 07:00] LABS: HEMATOCRIT 29.4 % (35.4-49); MCH 31.2 pg (25.7-33.7); MCHC 34.1 g/dl (32.0-35.9); MEAN CELL VOLUME 91.3 fl (80-96); MEAN PLT VOLUME 9.8 fl (7.5-11.1); PLATELET COUNT 86 10^3/uL (134-434); RBC 3.21 M/mm3 (4.00-5.60); RDW 17.1 % (11.9-15.9); WHITE BLOOD COUNT 6.5 K/mm3 (4.0-10.0)
[2020-10-31 07:08] LABS: CHLORIDE 107 mmol/L (98-107); SODIUM 139 mmol/L (136-145)
[2020-10-31 07:15] LABS: ANION GAP 3 MMOL/L (8-16); BLOOD UREA NITROGEN 9.2 mg/dL (7-18); CO2 30 mmol/L (21-32); GLUCOSE,RANDOM 118 mg/dL (74-106); MAGNESIUM 2.2 mg/dL (1.8-2.4)
[2020-10-31 07:18] LABS: CREATININE 0.4 mg/dL (0.55-1.3); PHOSPHOROUS 1.9 mg/dL (2.5-4.9); SGOT/AST 31 U/L (15-37); SGPT/ALT 25 U/L (13-61)
[2020-10-31 07:20] LABS: BILIRUBIN,TOTAL 0.6 mg/dL (0.2-1); TOT PROT 4.2 g/dl (6.4-8.2)
[2020-10-31 07:21] LABS: ALK PHOS 85 U/L (45-117)
[2020-10-31 07:28] LABS: ALBUMIN 1.8 g/dl (3.4-5.0); CALCIUM 6.6 mg/dL (8.5-10.1)
[2020-10-31] MEDS ORDERED: LIPASE/PROTEASE/AMYLASE 36,000 UNIT CAPSULE PO SCH (08:00)
[2020-10-31] MEDS ORDERED: PT OWN MED DRAWER 7, Y5N ONE ×4 (08:33→17:59)
[2020-10-31] MEDS: SODIUM CHLORIDE 1,000 ML IV SCH ×2 (08:48→21:26)
[2020-10-31] MEDS: LIPASE/PROTEASE/AMYLASE 36,000 UNIT CAPSULE PO SCH ×3 (08:48→18:08)
[2020-10-31] MEDS: CHOLESTYRAMINE/ASPARTAME 4 GM PACKET PO SCH ×2 (08:48→18:08)
[2020-10-31] MEDS ORDERED: SODIUM PHOSPHATE - 30 MM in SODIUM CHLORIDE 250 ML IVPB ONE (09:00)
[2020-10-31] MEDS: PARoxetine HCL 20 MG TABLET PO SCH (09:23)
[2020-10-31] MEDS: APIXABAN 2.5 MG TABLET PO SCH ×2 (09:23→21:27)
[2020-10-31] MEDS: MUPIROCIN 2% TOPICAL OINTMENT FOR DECOLONIZATION NS SCH (09:23)
[2020-10-31] MEDS ORDERED: CALCIUM GLUC IN NACL, ISO-OSM 1 GM/50 ML BAG IVPB ONE (12:59)
[2020-10-31] MEDS ORDERED: SODIUM PHOSPHATE - 30 MM in DEXTROSE 5%-WATER - 250 ML IVPB ONE (13:00)
[2020-10-31] MEDS: ATORVASTATIN CA 20 MG TABLET (FP) PO SCH (21:27)
[2020-10-31] MEDS ORDERED: CHLORHEXIDINE GLUCONATE 4% CLEANSER FOR DECOLONIZATION TP SCH (22:00)
[2020-11-01] MEDS: INSULIN SLIDING SCALE (NOVOLOG) 1 VIAL SQ SCH ×4 (06:48→21:39)
[2020-11-01] MEDS: INSULIN (LEVEMIR) 100 UNITS/ML UNITS SQ SCH ×2 (06:50→21:38)
[2020-11-01] MEDS: CHOLESTYRAMINE/ASPARTAME 4 GM PACKET PO SCH ×2 (08:06→17:39)
[2020-11-01] MEDS: LIPASE/PROTEASE/AMYLASE 36,000 UNIT CAPSULE PO SCH ×3 (08:10→17:39)
[2020-11-01 09:05] LABS: HEMATOCRIT 32.3 % (35.4-49); MCHC 33.9 g/dl (32.0-35.9); MEAN CELL VOLUME 91.4 fl (80-96); PLATELET COUNT 89 10^3/uL (134-434); RBC 3.54 M/mm3 (4.00-5.60); RDW 17.4 % (11.9-15.9); WHITE BLOOD COUNT 6.4 K/mm3 (4.0-10.0)
[2020-11-01 09:18] LABS: BLOOD UREA NITROGEN 6.9 mg/dL (7-18); MAGNESIUM 2.2 mg/dL (1.8-2.4)
[2020-11-01 09:21] LABS: CREATININE 0.4 mg/dL (0.55-1.3)
[2020-11-01 09:23] LABS: BILIRUBIN,TOTAL 0.6 mg/dL (0.2-1); TOT PROT 4.6 g/dl (6.4-8.2)
[2020-11-01 09:38] LABS: CALCIUM 7.1 mg/dL (8.5-10.1)
[2020-11-01] MEDS ORDERED: PT OWN MED DRAWER 7, Y5N ONE ×3 (09:38→17:34)
[2020-11-01] MEDS: PARoxetine HCL 20 MG TABLET PO SCH (09:42)
[2020-11-01] MEDS: APIXABAN 2.5 MG TABLET PO SCH ×2 (09:43→21:37)
[2020-11-01] MEDS: LISINOPRIL 20 MG TABLET PO SCH (09:43)
[2020-11-01] MEDS: SODIUM CHLORIDE 1,000 ML IV SCH ×2 (10:31→19:35)
[2020-11-01 12:34] LABS: ANISOCYTOSIS 1+; MACROCYTOSIS 1+; PLATELET ESTIMATE DECREASED; TEAR DROP CELLS 1+
[2020-11-01] MEDS: ATORVASTATIN CA 20 MG TABLET (FP) PO SCH (21:37)
[2020-11-02] MEDS: INSULIN SLIDING SCALE (NOVOLOG) 1 VIAL SQ SCH ×4 (06:08→21:15)
[2020-11-02] MEDS: INSULIN (LEVEMIR) 100 UNITS/ML UNITS SQ SCH ×2 (07:05→21:16)
[2020-11-02 07:53] LABS: HEMATOCRIT 34.1 % (35.4-49); HEMOGLOBIN 11.5 GM/dL (11.7-16.9); MCH 30.6 pg (25.7-33.7); MCHC 33.6 g/dl (32.0-35.9); MEAN PLT VOLUME 10.3 fl (7.5-11.1); PLATELET COUNT 145 10^3/uL (134-434); RBC 3.75 M/mm3 (4.00-5.60); RDW 17.3 % (11.9-15.9); WHITE BLOOD COUNT 7.2 K/mm3 (4.0-10.0)
[2020-11-02] MEDS ORDERED: PT OWN MED DRAWER 7, Y5N ONE ×4 (07:57→17:31)
[2020-11-02] MEDS: LIPASE/PROTEASE/AMYLASE 36,000 UNIT CAPSULE PO SCH ×3 (08:08→17:36)
[2020-11-02] MEDS: CHOLESTYRAMINE/ASPARTAME 4 GM PACKET PO SCH ×2 (08:08→17:37)
[2020-11-02 08:09] LABS: BLOOD UREA NITROGEN 6.3 mg/dL (7-18); MAGNESIUM 2.1 mg/dL (1.8-2.4)
[2020-11-02 08:12] LABS: CREATININE 0.4 mg/dL (0.55-1.3)
[2020-11-02 08:13] LABS: BILIRUBIN,TOTAL 0.6 mg/dL (0.2-1); TOT PROT 4.6 g/dl (6.4-8.2)
[2020-11-02] MEDS: PARoxetine HCL 20 MG TABLET PO SCH (09:19)
[2020-11-02] MEDS: APIXABAN 2.5 MG TABLET PO SCH ×2 (09:19→21:13)
[2020-11-02] MEDS: LISINOPRIL 20 MG TABLET PO SCH (09:20)
[2020-11-02] MEDS: SODIUM CHLORIDE 1,000 ML IV SCH ×2 (10:50→19:40)
[2020-11-02 11:10] LABS: ANISOCYTOSIS 1+; MACROCYTOSIS 0; OVALOCYTE 1+; PLATELET ESTIMATE DECREASED; TARGET CELLS 1+; TEAR DROP CELLS 1+
[2020-11-02] MEDS: ATORVASTATIN CA 20 MG TABLET (FP) PO SCH (21:14)
[2020-11-03] MEDS: INSULIN (LEVEMIR) 100 UNITS/ML UNITS SQ SCH ×2 (06:10→21:51)
[2020-11-03] MEDS: INSULIN SLIDING SCALE (NOVOLOG) 1 VIAL SQ SCH ×4 (06:11→21:50)
[2020-11-03] MEDS ORDERED: PT OWN MED DRAWER 7, Y5N ONE (09:44)
[2020-11-03] MEDS: LISINOPRIL 20 MG TABLET PO SCH (09:45)
[2020-11-03] MEDS: APIXABAN 2.5 MG TABLET PO SCH ×2 (09:45→21:50)
[2020-11-03] MEDS: PARoxetine HCL 20 MG TABLET PO SCH (09:47)
[2020-11-03] MEDS: LIPASE/PROTEASE/AMYLASE 36,000 UNIT CAPSULE PO SCH ×3 (09:48→17:21)
[2020-11-03] MEDS: SODIUM CHLORIDE 1,000 ML IV SCH (09:48)
[2020-11-03] MEDS: CHOLESTYRAMINE/ASPARTAME 4 GM PACKET PO SCH ×2 (09:48→17:21)
[2020-11-03] MEDS ORDERED: PORTA CATH FLUSH 10 ML IVPUSH ONE (10:55)
[2020-11-03 11:56] LABS: HEMATOCRIT 34.4 % (35.4-49); HEMOGLOBIN 11.8 GM/dL (11.7-16.9); MCH 31.2 pg (25.7-33.7); MCHC 34.2 g/dl (32.0-35.9); MEAN CELL VOLUME 91.4 fl (80-96); MEAN PLT VOLUME 9.4 fl (7.5-11.1); PLATELET COUNT 257 10^3/uL (134-434); RBC 3.77 M/mm3 (4.00-5.60); RDW 17.6 % (11.9-15.9); WHITE BLOOD COUNT 9.4 K/mm3 (4.0-10.0)
[2020-11-03 12:27] LABS: ALBUMIN 1.9 g/dl (3.4-5.0); BLOOD UREA NITROGEN 4.6 mg/dL (7-18); CALCIUM 7.1 mg/dL (8.5-10.1)
[2020-11-03 12:28] LABS: MAGNESIUM 2.2 mg/dL (1.8-2.4)
[2020-11-03 12:30] LABS: CREATININE 0.4 mg/dL (0.55-1.3)
[2020-11-03 12:32] LABS: BILIRUBIN,TOTAL 0.6 mg/dL (0.2-1); TOT PROT 4.6 g/dl (6.4-8.2)
[2020-11-03 12:35] LABS: ANISOCYTOSIS 1+; MACROCYTOSIS 0; OVALOCYTE 1+; PLATELET ESTIMATE NORMAL; TARGET CELLS 1+
[2020-11-03] MEDS: ATORVASTATIN CA 20 MG TABLET (FP) PO SCH (21:50)
[2020-11-04] MEDS: INSULIN (LEVEMIR) 100 UNITS/ML UNITS SQ SCH ×2 (06:58→21:49)
[2020-11-04] MEDS: INSULIN SLIDING SCALE (NOVOLOG) 1 VIAL SQ SCH ×4 (06:59→21:50)
[2020-11-04] MEDS ORDERED: PT OWN MED DRAWER 7, Y5N ONE (08:20)
[2020-11-04] MEDS: CHOLESTYRAMINE/ASPARTAME 4 GM PACKET PO SCH ×2 (08:32→17:02)
[2020-11-04] MEDS: LIPASE/PROTEASE/AMYLASE 36,000 UNIT CAPSULE PO SCH ×3 (08:33→17:02)
[2020-11-04 09:58] LABS: HEMOGLOBIN 11.5 GM/dL (11.7-16.9); MCHC 33.9 g/dl (32.0-35.9); MEAN CELL VOLUME 91.4 fl (80-96); MEAN PLT VOLUME 9.4 fl (7.5-11.1); PLATELET COUNT 359 10^3/uL (134-434); RBC 3.73 M/mm3 (4.00-5.60); RDW 17.9 % (11.9-15.9)
[2020-11-04 10:23] LABS: ALBUMIN 1.8 g/dl (3.4-5.0); BLOOD UREA NITROGEN 5.7 mg/dL (7-18); CALCIUM 7.2 mg/dL (8.5-10.1)
[2020-11-04] MEDS: LISINOPRIL 20 MG TABLET PO SCH (10:24)
[2020-11-04] MEDS: PARoxetine HCL 20 MG TABLET PO SCH (10:25)
[2020-11-04] MEDS: APIXABAN 2.5 MG TABLET PO SCH ×2 (10:25→21:49)
[2020-11-04 10:27] LABS: CREATININE 0.4 mg/dL (0.55-1.3)
[2020-11-04 10:28] LABS: BILIRUBIN,TOTAL 0.9 mg/dL (0.2-1); TOT PROT 4.3 g/dl (6.4-8.2)
[2020-11-04] MEDS ORDERED: INSULIN (NOVOLOG) ASPART 100 UNITS/ML 10ML VIAL ONE (11:23)
[2020-11-04 11:43] VITALS: BMI 25.1
[2020-11-04] MEDS: ARTIFICIAL TEARS (POLYVINYL ALCOHOL) OPTH DROPS OU PRN (11:47)
[2020-11-04 11:55] LABS: ANISOCYTOSIS 1+; MACROCYTOSIS 0; PLATELET ESTIMATE NORMAL; TARGET CELLS 1+
[2020-11-04] MEDS: ATORVASTATIN CA 20 MG TABLET (FP) PO SCH (21:49)
[2020-11-05] MEDS: INSULIN (LEVEMIR) 100 UNITS/ML UNITS SQ SCH ×2 (06:27→21:19)
[2020-11-05] MEDS: INSULIN SLIDING SCALE (NOVOLOG) 1 VIAL SQ SCH ×4 (06:28→21:19)
[2020-11-05] MEDS ORDERED: PORTA CATH FLUSH 10 ML IVPUSH ONE (07:00)
[2020-11-05] MEDS ORDERED: PT OWN MED DRAWER 7, Y5N ONE (08:49)
[2020-11-05] MEDS: CHOLESTYRAMINE/ASPARTAME 4 GM PACKET PO SCH ×2 (09:03→17:01)
[2020-11-05] MEDS: LIPASE/PROTEASE/AMYLASE 36,000 UNIT CAPSULE PO SCH ×3 (09:04→17:02)
[2020-11-05] MEDS: LISINOPRIL 20 MG TABLET PO SCH (10:11)
[2020-11-05] MEDS: APIXABAN 2.5 MG TABLET PO SCH ×2 (10:11→21:19)
[2020-11-05] MEDS: PARoxetine HCL 20 MG TABLET PO SCH (10:11)
[2020-11-05] MEDS: ARTIFICIAL TEARS (POLYVINYL ALCOHOL) OPTH DROPS OU PRN ×2 (10:15→17:00)
[2020-11-05] MEDS ORDERED: INSULIN (NOVOLOG) ASPART 100 UNITS/ML 10ML VIAL ONE (21:16)
[2020-11-05] MEDS: ATORVASTATIN CA 20 MG TABLET (FP) PO SCH (21:19)
[2020-11-06] MEDS: INSULIN (LEVEMIR) 100 UNITS/ML UNITS SQ SCH (06:12)
[2020-11-06] MEDS: INSULIN SLIDING SCALE (NOVOLOG) 1 VIAL SQ SCH ×2 (06:12→11:55)
[2020-11-06] MEDS ORDERED: PT OWN MED DRAWER 7, Y5N ONE ×2 (08:02→09:09)
[2020-11-06] MEDS: LIPASE/PROTEASE/AMYLASE 36,000 UNIT CAPSULE PO SCH ×2 (08:05→12:00)
[2020-11-06] MEDS: CHOLESTYRAMINE/ASPARTAME 4 GM PACKET PO SCH (08:05)
[2020-11-06 09:01] LABS: HEMATOCRIT 35.1 % (35.4-49); HEMOGLOBIN 11.9 GM/dL (11.7-16.9); MCH 30.7 pg (25.7-33.7); MCHC 33.9 g/dl (32.0-35.9); MEAN CELL VOLUME 90.5 fl (80-96); MEAN PLT VOLUME 8.2 fl (7.5-11.1); PLATELET COUNT 615 10^3/uL (134-434); RBC 3.87 M/mm3 (4.00-5.60); RDW 18.2 % (11.9-15.9)
[2020-11-06] MEDS: LISINOPRIL 20 MG TABLET PO SCH (09:10)
[2020-11-06] MEDS: PARoxetine HCL 20 MG TABLET PO SCH (09:11)
[2020-11-06 09:21] LABS: CALCIUM 7.6 mg/dL (8.5-10.1)
[2020-11-06 09:22] LABS: BLOOD UREA NITROGEN 5.2 mg/dL (7-18); MAGNESIUM 2.2 mg/dL (1.8-2.4)
[2020-11-06 09:25] LABS: CREATININE 0.4 mg/dL (0.55-1.3)
[2020-11-06 09:26] LABS: BILIRUBIN,TOTAL 0.7 mg/dL (0.2-1); TOT PROT 4.7 g/dl (6.4-8.2)
[2020-11-06] MEDS ORDERED: APIXABAN 5 MG TABLET PO SCH (10:00)
[2020-11-06 10:39] VITALS: BP 124/74; PULSE 78; TEMP 98.5
[2020-11-06 12:21] LABS: ANISOCYTOSIS 1+; MACROCYTOSIS 0; PLATELET ESTIMATE INCREASED; TARGET CELLS 1+
== END 2020-11-06 14:35 | DRG 638 ==
LOC: JER 04:15 → JERBED 06:05 → JICU 09:21 → J6S 10-31 19:28
PROVIDERS: ADMIT Internal Medicine; ATTEND Nurse Practitioner Acute Care
DX: E11.10 Type 2 diabetes mellitus with ketoacidosis without coma (principal); C25.9 Malignant neoplasm of pancreas, unspecified; N17.9 Acute kidney failure, unspecified; R17 Unspecified jaundice; I11.0 Hypertensive heart disease with heart failure; I50.9 Heart failure, unspecified; I48.91 Unspecified atrial fibrillation; E78.5 Hyperlipidemia, unspecified; R11.2 Nausea with vomiting, unspecified; F32.9 Major depressive disorder, single episode, unspecified; D69.6 Thrombocytopenia, unspecified; E83.39 Other disorders of phosphorus metabolism; E88.09 Other disorders of plasma-protein metabolism, not elsewhere classified
CPT/HCPCS: 36415; 36600; 70450-TC; 71045-TC-FY; 72125-TC; 72170-TC-FY; 80048; 80053; 81003; 82010; 82550; 82803; 82962; 83036; 83605; 83735; 83880; 84100; 84484; 85025; 85027; 85610; 85730; 86850; 86900; 86901; 87040; 87086; 93005; 93010; 97116-GP; 99291; C9803; J1644; U0003; U0005

== ENCOUNTER 2023-07-23 03:09 | Inpatient (IN) | payer OTHER, BC ==
[2023-07-23] MEDS ORDERED: METOCLOPRAMIDE HCL INJECTION 10 MG/2 ML VIAL ONE (03:39)
[2023-07-23] MEDS ORDERED: ACETAMINOPHEN INJECTION 100 ML IVPB ONE (03:39)
[2023-07-23] MEDS: SODIUM CHLORIDE 0.9% 500 ML INFUS.BAG IV ONE (03:57)
[2023-07-23] MEDS: ACETAMINOPHEN 1000 MG/100 ML BAG IVPB ONE (03:57)
[2023-07-23] MEDS: METOCLOPRAMIDE HCL INJECTION 10 MG/2 ML VIAL IVPB ONE (03:57)
[2023-07-23] MEDS ORDERED: MECLIZINE HCL 25 MG TABLET (FP) ONE ×3 (04:37→16:13)
[2023-07-23] MEDS: MECLIZINE HCL 25 MG TABLET (FP) PO ONE (04:40)
[2023-07-23 04:57] LABS: BASO % 0.8 % (0-2.0); EOS % 1.4 % (0-4.5); HEMATOCRIT 46.1 % (35.4-49); LYMPH % 18.7 % (8-40); MCH 33.4 pg (25.7-33.7); MCHC 34.7 g/dl (32.0-35.9); MEAN CELL VOLUME 96.2 fl (80-96); MEAN PLT VOLUME 8.8 fl (7.5-11.1); NEUT % 71.1 % (42.8-82.8); PLATELET COUNT 410 10^3/uL (134-434); RBC 4.79 M/mm3 (4.00-5.60); RDW 14.1 % (11.9-15.9); WHITE BLOOD COUNT 10.6 K/mm3 (4.0-10.0)
[2023-07-23 05:10] LABS: CHLORIDE 100 mmol/L (98-107); SODIUM 127 mmol/L (136-145)
[2023-07-23 05:12] LABS: ALBUMIN 3.2 g/dl (3.4-5.0); CO2 24 mmol/L (21-32)
[2023-07-23 05:13] LABS: BLOOD UREA NITROGEN 20.1 mg/dL (7-18); GLUCOSE,RANDOM 136 mg/dL (74-106)
[2023-07-23 05:17] LABS: CREATININE 0.9 mg/dL (0.55-1.3)
[2023-07-23 05:18] LABS: ALK PHOS 120 U/L (45-117); TOT PROT 7.9 g/dl (6.4-8.2)
[2023-07-23 05:32] LABS: ANION GAP 4 mmol/L (4-13); POTASSIUM > 10.0 mmol/L (3.5-5.1); SGOT/AST 100 U/L (15-37); SGPT/ALT 31 U/L (13-61)
[2023-07-23 06:45] LABS: POTASSIUM 4.1 mmol/L (3.5-5.1)
[2023-07-23 06:47] LABS: BLOOD UREA NITROGEN 18.7 mg/dL (7-18); CALCIUM 8.7 mg/dL (8.5-10.1)
[2023-07-23 06:49] LABS: CREATININE 0.7 mg/dL (0.55-1.3)
[2023-07-23 06:59] LABS: MAGNESIUM 2.1 mg/dL (1.8-2.4)
[2023-07-23] MEDS ORDERED: MECLIZINE HCL 25 MG TABLET (FP) PO SCH (08:45)
[2023-07-23] MEDS ORDERED: APIXABAN 5 MG TABLET ONE (09:23)
[2023-07-23] MEDS ORDERED: GABAPENTIN 100 MG CAPSULE ONE ×2 (09:23→16:08)
[2023-07-23] MEDS ORDERED: LISINOPRIL 20 MG TABLET ONE (09:23)
[2023-07-23] MEDS ORDERED: PARoxetine HCL 10 MG TABLET ONE (09:23)
[2023-07-23] MEDS ORDERED: INSULIN (NOVOLOG) ASPART 100 UNITS/ML 10ML VIAL ONE (09:24)
[2023-07-23] MEDS ORDERED: INSULIN (LEVEMIR) 100 UNITS/ML UNITS SQ ONE (09:24)
[2023-07-23] MEDS ORDERED: LISINOPRIL 20 MG TABLET PO SCH (10:00)
[2023-07-23] MEDS: APIXABAN 5 MG TABLET PO SCH (10:30)
[2023-07-23] MEDS: GABAPENTIN 100 MG CAPSULE PO SCH (10:30)
[2023-07-23] MEDS: MECLIZINE HCL 25 MG TABLET (FP) PO SCH (10:30)
[2023-07-23] MEDS: INSULIN (LEVEMIR) 100 UNITS/ML UNITS SQ SCH (12:32)
[2023-07-23] MEDS: INSULIN ASPART SLIDING SCALE (NOVOLOG) 1 VIAL SQ SCH (12:36)
[2023-07-23] MEDS: PARoxetine HCL 20 MG TABLET PO SCH (12:43)
[2023-07-23] MEDS: ASPIRIN 81 MG CHEWABLE TABLETS PO ONE (12:43)
[2023-07-23] MEDS ORDERED: ASPIRIN 81 MG CHEWABLE TABLETS ONE (12:44)
[2023-07-23] MEDS: LOSARTAN POTASSIUM 50 MG TABLET PO SCH (13:36)
[2023-07-23] MEDS: LIPASE/PROTEASE/AMYLASE 36,000 UNIT CAPSULE PO SCH (13:36)
[2023-07-23] MEDS: NIFEdipine E.R. 90 MG TABLET PO SCH (13:37)
[2023-07-23 17:27] VITALS: BMI 25.7
[2023-07-23] MEDS: ATORVASTATIN CA 40 MG TABLET (FP) PO SCH (21:41)
[2023-07-24 06:04] LABS: BASO % 0.2 % (0-2.0); EOS % 2.9 % (0-4.5); HEMATOCRIT 48.7 % (35.4-49); HEMOGLOBIN 16.3 GM/dL (11.7-16.9); LYMPH % 37.4 % (8-40); MCHC 33.6 g/dl (32.0-35.9); MEAN CELL VOLUME 98.3 fl (80-96); MEAN PLT VOLUME 8.2 fl (7.5-11.1); MONO % 9.2 % (3.8-10.2); NEUT % 50.3 % (42.8-82.8); PLATELET COUNT 375 10^3/uL (134-434); RBC 4.95 M/mm3 (4.00-5.60); RDW 13.8 % (11.9-15.9); WHITE BLOOD COUNT 8.3 K/mm3 (4.0-10.0)
[2023-07-24 06:23] LABS: ALBUMIN 3.3 g/dl (3.4-5.0); CALCIUM 8.9 mg/dL (8.5-10.1)
[2023-07-24 06:26] LABS: CREATININE 0.8 mg/dL (0.55-1.3)
[2023-07-24 06:28] LABS: BILIRUBIN,TOTAL 1.1 mg/dL (0.2-1); TOT PROT 6.8 g/dl (6.4-8.2)
[2023-07-24] MEDS: ASPIRIN COATED 81 MG TABLET.EC PO SCH (09:55)
[2023-07-24] MEDS: ACETAMINOPHEN 325 MG TABLET (FP) PO PRN (12:08)
[2023-07-24] MEDS: MECLIZINE HCL 25 MG TABLET (FP) PO SCH (12:08)
[2023-07-24] MEDS: SODIUM CHLORIDE 250 ML IV SCH (12:14)
[2023-07-24] MEDS: SODIUM CHLORIDE 250 ML IV STA (12:15)
[2023-07-24] MEDS ORDERED: SODIUM CHLORIDE 250 ML IV SCH (13:00)
[2023-07-24 14:24] VITALS: RESP 18
[2023-07-24] MEDS: SODIUM CHLORIDE 1,000 ML IV SCH (15:23)
[2023-07-24] MEDS: MECLIZINE HCL 12.5 MG TABLET PO PRN (21:01)
[2023-07-24] MEDS: APIXABAN 2.5 MG TABLET PO SCH (21:02)
[2023-07-25 09:15] VITALS: BP 138/95; PULSE 77; TEMP 98.3
== END 2023-07-25 13:33 | disposition home or self-care (01) | DRG 149 ==
LOC: JER 03:09 → JERBED 07:12 → OBSVTOIN 08:21 → J4S 16:40
PROVIDERS: ATTEND Internal Medicine
DX: H83.01 Labyrinthitis, right ear (principal); I48.91 Unspecified atrial fibrillation; Z79.01 Long term (current) use of anticoagulants; I10 Essential (primary) hypertension; E11.40 Type 2 diabetes mellitus with diabetic neuropathy, unspecified; Z79.4 Long term (current) use of insulin; I65.23 Occlusion and stenosis of bilateral carotid arteries; I36.1 Nonrheumatic tricuspid (valve) insufficiency; I34.0 Nonrheumatic mitral (valve) insufficiency
CPT/HCPCS: 0241U-QW; 36415; 70450-TC; 70551-TC; 80048; 80053; 80061; 82962; 83036; 83735; 84484; 85025; 93005; 93010; 93306-TC; 93880-TC; 97116-GP; 97162-GP; 99285-25; G0378; J0131